=== PATIENT | female | born 1930 | race Caucasian/White ===

== ENCOUNTER 2016-11-24 11:14 | Inpatient (IN) | payer MEDICARE ==
[2016-11-24] VITALS (8 sets, daily range): BP systolic 112–134; BP diastolic 58–82; PULSE 52–93; RESP 12–18; TEMP 97.4–97.9; O2SAT 93–96
[~2016-11-24] VITALS: Ht 162.6 cm; Wt 63.6 kg
[~2016-11-24 11:14] MED LIST: CARD120C4 PO; HYDR-2952 PO; LEVO.05 PO; METO100T PO; QUIN20TA22 PO; TAB-TAB PO; [UNRECOGNIZED DRUG - OTHER] PO
[2016-11-24] MEDS ORDERED: SODIUM CHLORIDE 0.9% FLUSH 5 ML FLUSH IVF PRN (12:30)
--- NOTE | 2016-11-24 12:34 | PD ---
HPI Chief Complaint: General Weakness Time Seen by Provider: 12:27 Travel History International Travel<30 days: No Contact w/Intl Traveler<30days: No Traveled to known affect area: No History of Present Illness HPI Patient is an 86-year-old female presenting to the emergency room for evaluation of generalized weakness. Patient presents with her daughter who states that she's been weak, fatigued and tired for over a week. Patient reports chest pain for the last week that been intermittent, she also reports a decreased appetite for the last 2 weeks. Patient states the chest pain is substernal. She denies any cough, nausea, fevers, abdominal pain, vomiting, diarrhea. Patient has been seeing her capture manager Dr. Alvarado, who daughter states has started her on a new medication because of her heart rate being too high. Patient was just placed on Digitek. PFSH Past Medical History Hx Anticoagulant Therapy: Yes Arthritis: No Asthma: No Atrial Fibrillation: Yes Cancer: No High Cholesterol: Yes Chest Pain: No Congestive Heart Failure: Yes COPD: No Cerebrovascular Accident: No Diabetes: No Endocrine: Yes Gastrointestinal Disorders: Yes GERD: No Genitourinary: No Hiatal Hernia: No Hypertension: Yes Immune Disorder: No Kidney Stones: No Musculoskeletal: No Neurologic: No Reproductive: No Respiratory: No Renal Failure: No Seizures: No Sleep Apnea: No Thyroid Disease: Yes Ulcer: Yes PNEUMOCCOCAL Vaccine (Year): 1 ?: Not Menopausal: Yes Past Surgical History Abdominal Surgery: Yes (ULCER ) Body Medical Devices: GUILLERMO EYE LENS; HEART VALVE Cardiac Surgery: Yes (HEART VALVE) Ear Surgery: No Endocrine Surgery: No Eye Surgery: No Genitourinary Surgery: No Gynecologic Surgery: No Oral Surgery: No Thoracic Surgery: No Other Surgery: Yes Social History Alcohol Use: No Tobacco Use: No Substance Use: No Allergies-Medications (Allergen,Severity, Reaction): Coded Allergies: No Known Allergies (Verified , 11/24/16) Reported Meds & Prescriptions Reported Meds & Active Scripts Active Reported Lanoxin (Digoxin) 0.125 Mg Tab 0.125 Mg PO DAILY Celexa (Citalopram Hydrobromide) 20 Mg Tab 20 Mg PO DAILY Hydrochlorothiazide 12.5 Mg Tab 12.5 Mg PO DAILY Xarelto (Rivaroxaban) 15 Mg Tab 15 Mg PO DAILY Cartia Xt (Diltiazem ER 24 HR) 120 Mg Caper 120 Mg PO DAILY Fusion Plus (Multi-Vit/Iron-Vitamin C-J48-Gegyh Acid-Lacto) 130-75-0.12-1,250- 30 mg Cap 1 Cap PO DAILY Quinapril (Quinapril HCl) 20 Mg Tab 20 Mg PO DAILY Levothyroxine (Levothyroxine Sodium) 50 Mcg Tab 50 Mcg PO DAILY Metoprolol Succinate ER 24 HR (Metoprolol Succinate) 200 Mg Tab 200 Mg PO DAILY Review of Systems Except as stated in HPI: all other systems reviewed are Neg General / Constitutional: Positive: Other (fatigue) HENT: No: Headaches Cardiovascular: Positive: Chest Pain or Discomfort Respiratory: No: Cough, Shortness of Breath Gastrointestinal: Positive: Loss of Appetite, No: Nausea, Vomiting, Diarrhea, Abdominal Pain Genitourinary: No: Dysuria Neurologic: Positive: Weakness, No: Focal Abnormalities Physical Exam Narrative GENERAL: Well-developed, well-nourished, elderly female. Resting comfortably in no acute distress. SKIN: Warm and dry. HEAD: Atraumatic. Normocephalic. EYES: Pupils equal and round. No scleral icterus. No injection or drainage. ENT: No nasal bleeding or discharge. Mucous membranes pink and moist. NECK: Trachea midline. No JVD. CARDIOVASCULAR: Irregularly irregular, muffled. No murmur appreciated. RESPIRATORY: No accessory muscle use. Clear to auscultation. Breath sounds equal bilaterally. GASTROINTESTINAL: Abdomen soft, non-tender, nondistended. Hepatic and splenic margins not palpable. MUSCULOSKELETAL: No obvious deformities. No clubbing. No cyanosis. No edema. Positive pedal pulses bilaterally. NEUROLOGICAL: Awake and alert. No obvious cranial nerve deficits. Motor grossly within normal limits. Normal speech. PSYCHIATRIC: Appropriate mood and affect; insight and judgment normal. Data Data Last Documented VS Vital Signs Date Time Temp Pulse Resp B/P Pulse Ox O2 Delivery O2 Flow Rate FiO2 11/24/16 14:41 57 18 112/58 95 Room Air 11/24/16 11:21 97.4 Orders Electrocardiogram (11/24/16 12:24) Ckmb (Isoenzyme) Profile (11/24/16 12:24) Complete Blood Count With Diff (11/24/16 12:24) Comprehensive Metabolic Panel (11/24/16 12:24) Magnesium (Mg) (11/24/16 12:24) Prothrombin Time / Inr (Pt) (11/24/16 12:24) Act Partial Throm Time (Ptt) (11/24/16 12:24) Troponin I (11/24/16 12:24) Chest, Single Ap (11/24/16 12:24) Sodium Chloride 0.9% Flush (Ns Flush) (11/24/16 12:30) Urinalysis - C+S If Indicated (11/24/16 12:24) Digoxin (11/24/16 12:25) Urine Culture (11/24/16 14:35) Ceftriaxone Inj (Rocephin Inj) (11/24/16 15:30) Admit Order (Ed Use Only) (11/24/16 ) Labs Laboratory Tests Test 11/24/16 11/24/16 11/24/16 12:50 13:20 14:35 White Blood Count 7.3 TH/MM3 Red Blood Count 5.14 MIL/MM3 Hemoglobin 15.8 GM/DL Hematocrit 44.2 % Mean Corpuscular Volume 86.0 FL Mean Corpuscular Hemoglobin 30.7 PG Mean Corpuscular Hemoglobin 35.7 % Concent Red Cell Distribution Width 14.0 % Platelet Count 181 TH/MM3 Mean Platelet Volume 10.5 FL Neutrophils (%) (Auto) 74.9 % Lymphocytes (%) (Auto) 13.7 % Monocytes (%) (Auto) 7.9 % Eosinophils (%) (Auto) 3.0 % Basophils (%) (Auto) 0.5 % Neutrophils # (Auto) 5.4 TH/MM3 Lymphocytes # (Auto) 1.0 TH/MM3 Monocytes # (Auto) 0.6 TH/MM3 Eosinophils # (Auto) 0.2 TH/MM3 Basophils # (Auto) 0.0 TH/MM3 CBC Comment DIFF FINAL Differential Comment Prothrombin Time 11.5 SEC Prothromb Time International 1.0 RATIO Ratio Activated Partial 25.7 SEC Thromboplast Time Sodium Level 136 MEQ/L Potassium Level 3.8 MEQ/L Chloride Level 99 MEQ/L Carbon Dioxide Level 28.1 MEQ/L Anion Gap 9 MEQ/L Blood Urea Nitrogen 37 MG/DL Creatinine 1.93 MG/DL Estimat Glomerular Filtration 25 ML/MIN Rate Random Glucose 121 MG/DL Calcium Level 9.1 MG/DL Magnesium Level 2.4 MG/DL Total Bilirubin 0.5 MG/DL Aspartate Amino Transf 22 U/L (AST/SGOT) Alanine Aminotransferase 16 U/L (ALT/SGPT) Alkaline Phosphatase 76 U/L Total Creatine Kinase 84 U/L Troponin I 0.02 NG/ML Total Protein 7.2 GM/DL Albumin 3.1 GM/DL Digoxin Level 2.3 NG/ML Urine Color YELLOW Urine Turbidity HAZY Urine pH 6.0 Urine Specific [place] 1.011 Urine Protein TRACE mg/dL Urine Glucose (UA) NEG mg/dL Urine Ketones NEG mg/dL Urine Occult Blood SMALL Urine Nitrite NEG Urine Bilirubin NEG Urine Urobilinogen LESS THAN 2.0 MG/DL Urine Leukocyte Esterase LARGE Urine RBC 12 /hpf Urine WBC /hpf Urine WBC Clumps MANY Urine Squamous Epithelial 3 /hpf Cells Urine Transitional Epithelial 8 /hpf Cells Urine Bacteria MOD /hpf Microscopic Urinalysis Comment CULTURE INDICATED MDM Medical Decision Making Medical Screen Exam Complete: Yes Emergency Medical Condition: Yes Medical Record Reviewed: Yes Interpretation(s) Vital Signs Date Time Temp Pulse Resp B/P Pulse Ox O2 Delivery O2 Flow Rate FiO2 11/24/16 11:21 97.4 93 16 128/58 93 Differential Diagnosis Viral syndrome versus digoxin toxicity versus congestive heart failure versus urinary tract infection versus other Narrative Course Patient is an 86-year-old female presenting to the emergency department with her daughter for evaluation of generalized weakness and chest pain. EKG, chest x-ray, labs ordered and pending. Additionally we'll check digoxin level. Care patient will be transferred to provide her with a medical bed is available. Workup was initiated in triage. Jael Edmonds Nov 24, 2016 12:34 Jael Edmonds Nov 24, 2016 12:34
[2016-11-24 13:14] LABS: AUTOMATED NEUTROPHIL # 5.4 TH/MM3 (1.8-7.7); BASOPHIL % 0.5 % (0.0-2.0); EOSINOPHIL # 0.2 TH/MM3 (0-0.4); HEMATOCRIT 44.2 % (35.0-46.0); HEMO FLAGS DIFF FINAL; LYMPH % 13.7 % (9.0-44.0); MEAN CORPUSCULAR HEMOGLOBIN 30.7 PG (27.0-34.0); MEAN CORPUSCULAR HGB CONC 35.7 % (32.0-36.0); MONO % 7.9 % (0.0-8.0); NEUT % 74.9 % (16.0-70.0); PLATELET COUNT 181 TH/MM3 (150-450); RED BLOOD COUNT 5.14 MIL/MM3 (4.00-5.30); WHITE BLOOD COUNT 7.3 TH/MM3 (4.0-11.0)
[2016-11-24 13:25] LABS: APTT (PATIENT) 25.7 SEC (24.3-30.1); PROTHROMBIN TIME - PATIENT 11.5 SEC (9.8-11.6)
[2016-11-24 13:37] LABS: ANION GAP 9 MEQ/L (5-15); AST (GOT) 22 U/L (15-37); BICARBONATE 28.1 MEQ/L (21.0-32.0); BLOOD UREA NITROGEN 37 MG/DL (7-18); CHLORIDE 99 MEQ/L (98-107); GLOMERULAR FILTRATION RATE 25 ML/MIN (>89); MAGNESIUM 2.4 MG/DL (1.5-2.5); POTASSIUM 3.8 MEQ/L (3.5-5.1); SODIUM (NA) 136 MEQ/L (136-145)
[2016-11-24 13:41] LABS: ALKALINE PHOSPHATASE 76 U/L (45-117); ALT (GPT) 16 U/L (10-53); TOTAL BILIRUBIN ADULT 0.5 MG/DL (0.2-1.0)
[2016-11-24 13:42] LABS: CREATINE KINASE 84 U/L (26-192)
--- NOTE | 2016-11-24 14:12 | RADRPT ---
EXAM DATE/TIME: 11/24/2016 13:42 [facility] COMPARISON: No previous studies available for comparison. INDICATIONS : Weakness. Chest discomfort. Irregular heartbeat. MEDICAL HISTORY : Atrial fibrilation. SURGICAL HISTORY : Fusion, lumbar. Cardiac valve replacement. ENCOUNTER: Subsequent ACUITY: 2 weeks PAIN SCORE: 0/10 LOCATION: Left middle chest FINDINGS: A single view of the chest demonstrates diminished lung volumes. No infiltrate or effusion. The card iomediastinal contours are unremarkable. Previous heart valve replacement. Osseous structures are int act. CONCLUSION: No acute disease. Zenon Saldana MD on November 24, 2016 at 14:05 Board Certified Radiologist. This report was verified electronically.
[2016-11-24] MEDS ORDERED: CELE20TA PO (14:18)
[2016-11-24] MEDS ORDERED: CART120C PO (14:18)
[2016-11-24] MEDS ORDERED: LEVO50TA4 PO (14:18)
[2016-11-24] MEDS ORDERED: FE FCAP3 PO (14:18)
[2016-11-24] MEDS ORDERED: METO200T3 PO (14:18)
[2016-11-24] MEDS ORDERED: LANO0.1212 PO (14:18)
[2016-11-24] MEDS ORDERED: XARE15TA PO (14:18)
[2016-11-24] MEDS ORDERED: HYDR12.56 PO (14:18)
[2016-11-24] MEDS ORDERED: QUIN20TA4 PO (14:18)
[2016-11-24 15:19] LABS: BACTERIA, URINE MOD /hpf; BLOOD, URINE SMALL (NEG); GLUCOSE,URINE NEG (NEG); KETONE, URINE NEG (NEG); NITRITE,URINE NEG (NEG); SQUAMOUS EPITHELIAL CELL URINE 3 /hpf (0-5); TRANSITIONAL EPI CELLS, URINE 8 /hpf; URINE COLOR YELLOW (YELLW/STRAW)
[2016-11-24 15:22] LABS: COMMENT (UR) CULTURE INDICATED; CULTURE IF INDICATED CULTURE INDICATED
[2016-11-24] MEDS ORDERED: cefTRIAXone INJ 1,000 MG in SODIUM CHLORIDE 0.9% INJ 100 ML IV ONE (15:30)
--- NOTE | 2016-11-24 15:35 | PD ---
Data Data Last Documented VS Vital Signs Date Time Temp Pulse Resp B/P Pulse Ox O2 Delivery O2 Flow Rate FiO2 11/24/16 14:41 57 18 112/58 95 Room Air 11/24/16 11:21 97.4 Orders Electrocardiogram (11/24/16 12:24) Ckmb (Isoenzyme) Profile (11/24/16 12:24) Complete Blood Count With Diff (11/24/16 12:24) Comprehensive Metabolic Panel (11/24/16 12:24) Magnesium (Mg) (11/24/16 12:24) Prothrombin Time / Inr (Pt) (11/24/16 12:24) Act Partial Throm Time (Ptt) (11/24/16 12:24) Troponin I (11/24/16 12:24) Chest, Single Ap (11/24/16 12:24) Sodium Chloride 0.9% Flush (Ns Flush) (11/24/16 12:30) Urinalysis - C+S If Indicated (11/24/16 12:24) Digoxin (11/24/16 12:25) Urine Culture (11/24/16 14:35) Ceftriaxone Inj (Rocephin Inj) (11/24/16 15:30) Labs Laboratory Tests Test 11/24/16 11/24/16 11/24/16 12:50 13:20 14:35 White Blood Count 7.3 TH/MM3 Red Blood Count 5.14 MIL/MM3 Hemoglobin 15.8 GM/DL Hematocrit 44.2 % Mean Corpuscular Volume 86.0 FL Mean Corpuscular Hemoglobin 30.7 PG Mean Corpuscular Hemoglobin 35.7 % Concent Red Cell Distribution Width 14.0 % Platelet Count 181 TH/MM3 Mean Platelet Volume 10.5 FL Neutrophils (%) (Auto) 74.9 % Lymphocytes (%) (Auto) 13.7 % Monocytes (%) (Auto) 7.9 % Eosinophils (%) (Auto) 3.0 % Basophils (%) (Auto) 0.5 % Neutrophils # (Auto) 5.4 TH/MM3 Lymphocytes # (Auto) 1.0 TH/MM3 Monocytes # (Auto) 0.6 TH/MM3 Eosinophils # (Auto) 0.2 TH/MM3 Basophils # (Auto) 0.0 TH/MM3 CBC Comment DIFF FINAL Differential Comment Prothrombin Time 11.5 SEC Prothromb Time International 1.0 RATIO Ratio Activated Partial 25.7 SEC Thromboplast Time Sodium Level 136 MEQ/L Potassium Level 3.8 MEQ/L Chloride Level 99 MEQ/L Carbon Dioxide Level 28.1 MEQ/L Anion Gap 9 MEQ/L Blood Urea Nitrogen 37 MG/DL Creatinine 1.93 MG/DL Estimat Glomerular Filtration 25 ML/MIN Rate Random Glucose 121 MG/DL Calcium Level 9.1 MG/DL Magnesium Level 2.4 MG/DL Total Bilirubin 0.5 MG/DL Aspartate Amino Transf 22 U/L (AST/SGOT) Alanine Aminotransferase 16 U/L (ALT/SGPT) Alkaline Phosphatase 76 U/L Total Creatine Kinase 84 U/L Troponin I 0.02 NG/ML Total Protein 7.2 GM/DL Albumin 3.1 GM/DL Digoxin Level 2.3 NG/ML Urine Color YELLOW Urine Turbidity HAZY Urine pH 6.0 Urine Specific [place] 1.011 Urine Protein TRACE mg/dL Urine Glucose (UA) NEG mg/dL Urine Ketones NEG mg/dL Urine Occult Blood SMALL Urine Nitrite NEG Urine Bilirubin NEG Urine Urobilinogen LESS THAN 2.0 MG/DL Urine Leukocyte Esterase LARGE Urine RBC 12 /hpf Urine WBC /hpf Urine WBC Clumps MANY Urine Squamous Epithelial 3 /hpf Cells Urine Transitional Epithelial 8 /hpf Cells Urine Bacteria MOD /hpf Microscopic Urinalysis Comment CULTURE INDICATED MDM Supervised Visit with CAESAR: Yes Narrative Course Assumed care patient. 86-year-old woman with progressive weakness and fatigue over the past week. They've been adjusting her medications. Couple weeks ago they switched her onto long-acting metoprolol since she would only take it once a day. He also had a digoxin about a week or so ago. She's got progressively more fatigued and weak and so is brought in by family today. She looks well. She is in A. fib with significant bradycardia down in the high 40s low 50s. EKG shows some lateral T wave inversions I think represents digoxin effect. Could also represent ischemia. Troponin is negative however. She does have kidney injury with a GFR 25. We have no old glasses notices chronic or not. I think she likely has symptomatic bradycardia, likely from medications and possibly compounded by renal dysfunction. We'll recommend admission to the hospital. She has some pyuria we'll treat her for UTI. Keep her on monitor. Consider Digibind if there is any worsening. Diagnosis Primary Impression: Symptomatic bradycardia Additional Impressions: UTI (urinary tract infection) Qualified Code: N30.00 - Acute cystitis without hematuria Kidney disease Admitting Information Admitting Physician Requests: Admit Iam Cummings MD Nov 24, 2016 15:35
[2016-11-24] MEDS ORDERED: SODIUM CHLORIDE 0.9% FLUSH 5 ML FLUSH FLUSH PRN (15:45)
[2016-11-24] MEDS ORDERED: NALOXONE HCL 0.4 MG/ML AMP IV PRN (15:45)
[2016-11-24] MEDS ORDERED: ACETAMINOPHEN 325 MG TAB PO PRN (15:45)
[2016-11-24] MEDS ORDERED: ONDANSETRON HCL 4 MG/2 ML VIAL IVP PRN (15:45)
--- NOTE | 2016-11-24 16:26 | HP.UPD ---
H&P Update Note This is an 86-year-old female who was seen by the undersigned today in room A11 at the emergency department. She was brought in by family for generalized weakness and lethargy. She has atrial fibrillation and has had problems with controlling her rapid response. She sees wire cutter Dr. Chaparro. Recently she has been put on 200 mg of Toprol, 180 mg of Cardizem in addition to oral digoxin. He is currently digoxin toxic at a heart rate in the 40s and 50s, she continues in atrial fibrillation. Also she appears to have some form of renal dysfunction. Family is unaware that she has problems with her kidney function. She does urinate adequately. Also she has pyuria questionable urinary infection. Case was discussed with emergency physician and with the patient's daughter. She is being admitted to telemetry. Cardiology consultation requested. Digoxin discontinued. Cardizem withheld. Toprol-XL dose reduced and is to be held for heart rate below 50. He is to have her renal function followed. IV fluids also ordered. Full history and physical to follow Kuldeep Alexander MD Nov 24, 2016 16:23
[2016-11-24] MEDS: SODIUM CHLOR 0.45% 1000 ML INJ 1,000 ML IV SCH (17:04)
--- NOTE | 2016-11-24 18:45 | MB ---
cc: MIKE CHEN M.D., MARK B. M.D. KAYYAL, MAZHAR MD DATE OF CONSULTATION: 11/24/2016 REASON FOR CONSULTATION: Bradycardia. REFERRING PHYSICIAN: Dr. Alexander. HISTORY Ms. Beck is an 86 year-old white female well-known to me with permanent atrial fibrillation. Over the past 2 weeks she has been very lethargic and weak according to her daughter who had her taken to the emergency room this morning for evaluation. We have been in close contact with the patient's daughter about the patient's condition. I saw her last on October 13 at which time she had an uncontrolled ventricular response and heart rates in the 130 range. She was not very symptomatic at that point and her medications were adjusted but since then it has come to our attention that she has been living alone and taking her own medications and been noncompliant and unreliable as far as taking her medications. Over the past 2 weeks she has had a visiting customer care assistant help her with her medications and she has now been, according to the daughter, receiving them regularly in the evenings. Since that time she has become more weak and lethargic. On arrival here she was found to be in atrial fibrillation with a heart rate in the 40s and 50s, but her blood pressure was adequate and she is awake and alert, in no distress. Her daughter tells me that her p.o. fluid and food intake has been poor lately. The patient denies any chest pain, shortness of breath. She denies any palpitations, lightheadedness or syncopal episodes. She is lying in bed, very comfortable at this time with no complaints. She appears to be able to lie flat comfortably. PAST MEDICAL HISTORY: Significant for longstanding hypertension with hypertensive heart disease, mitral valve disease with mitral valve prolapse, permanent atrial fibrillation, mild aortic insufficiency, hypothyroidism on replacement, long-term anticoagulation therapy with Xarelto. She denies history of myocardial infarction, heart failure or stroke. Denies diabetes mellitus. MEDICATIONS Medications at home were as follows: 1. Digoxin 0.125 mg daily which was started on November 11 to help with a ventricular rate control. 2. Metoprolol succinate 200 mg daily. 3. Diltiazem CD 120 mg daily. 4. Quinapril 20 mg daily. 5. Xarelto 15 mg daily. 6. Hydrochlorothiazide 12.5 mg daily. 7. Levothyroxine 50 mcg daily. 8. Multivitamin. 9. Iron supplements daily. Her p.o. medications have been held today. Her last dose of digoxin was last night around 05:30 p.m. On admission she has orders for: 1. Ceftriaxone 1 gram IV daily 2. Celexa 20 mg daily. 3. Rivaroxaban 4. Hydrochlorothiazide. 5. Metoprolol succinate 100 milligrams daily have been restarted for tomorrow. ALLERGIES None known. PAST SURGICAL HISTORY 1. She has had prior cardiac catheterization. 2. She underwent a mitral valve replacement with a #[address] Seng Castillo, here, April 16, 2011. 3. She has had bilateral cataract surgery. 4. Peptic ulcer surgery. SOCIAL HISTORY The patient denies tobacco, alcohol or illicit drug use. She lives home alone. FAMILY HISTORY Noncontributory. REVIEW OF SYSTEMS Denies lower extremity edema or claudication. Denies any lightheadedness, palpitations or syncope. Denies fevers, chills, night sweats, nausea, vomiting, diarrhea. Denies bleeding or clotting disorders. Except for that mentioned in HPI a complete 12-point review of systems otherwise negative. PHYSICAL EXAMINATION Reveals an elderly white female lying in bed in no distress at this time. Vital signs: Blood pressure 112/58 mmHg, heart rate is 57 and irregular, respiratory rate 18, temperature 97.4, oxygen saturation 95% on room air. Head: Normocephalic and atraumatic. Pupils equal, round, and react to light. Sclerae anicteric. Extraocular movements intact. Neck: The neck is supple. There is no adenopathy. No jugular venous tension at 30 degrees. Carotid upstrokes normal. No bruits. Thyroid exam is normal. Lungs: Clear. Heart: PMI is not displaced. S1-S2 irregular. I hear no murmurs, gallops or rubs. Abdomen: Benign. Extremities: No cyanosis, clubbing or edema. Perfusion is adequate in the upper and lower extremities. There are no femoral bruits. Neurologic: Exam is grossly intact. EKG from the emergency room shows atrial fibrillation with a slow ventricular response in the high 40s. LABORATORY DATA CBC: white count 7.3, hemoglobin 15.8, platelet count 181,000. Coags are normal. Electrolytes are normal. Potassium 3.8, BUN 37, creatinine 1.93, glucose 121, magnesium 2.4, AST 22, CPK 84 with a troponin-I of 0.02. Digoxin level 2.3. Urinalysis is hazy shows a large amount of leukocyte esterase with many white blood cell clumps and moderate bacteria. Culture has been sent and is pending. X-RAYS: Chest x-ray from today, no acute disease. An echocardiogram performed in my office on October 28, 2016 showed left ventricular hypertrophy with normal left ventricular size and mildly reduced systolic function. Ejection fraction 45%. There is aortic sclerosis with mild +1 aortic insufficiency. There is a normally functioning mitral valve bioprosthesis and mild tricuspid regurgitation. IMPRESSION 1. Atrial fibrillation with a slow ventricular response. 2. Generalized malaise, lethargy and weakness of uncertain etiology. 3. Hypertensive heart disease, currently well controlled. 4. History of mitral valve prolapse and mitral regurgitation status post replacement with a #27 Doan bioprosthesis April 16, 2011 functioning normally on a recent echocardiogram. 5. Mild aortic insufficiency. 6. Medication compliance issues at home. 7. Acute renal insufficiency suspected, mild dehydration. 8. Advanced age. RECOMMENDATIONS Due to the patient's poor compliance with medications at home, and it has been difficult to manipulate her medications to get appropriate ventricular rate control, it is clear now over the past week as we think she has been getting her medications as prescribed, she has probably become over-medicated. Her renal insufficiency due to suspected dehydration and poor p.o. intake is certainly contributing to the situation. She is started on intravenous fluids overnight for judicious hydration. I am going to discontinue her hydrochlorothiazide at this time since it would certainly predispose her to dehydration considering her poor p.o. intake. Additionally, will restart her Cardizem CD 120 mg daily, but reduce her dose of metoprolol succinate to 100 mg daily. Digoxin has been discontinued as well due to her renal insufficiency and slightly elevated digoxin level here today. Will observe her on telemetry. Her urinary tract infection is being addressed and treated. I have had a long discussion with the patient and her daughter. The daughter would like to entertain possible assisted care facility options since the patient is getting more difficult to manage at home. I will follow her with you. Thank you for allowing us to participate in the care of this patient. Anshul MD KENNEDY Arriaza /5:02 PM /5:42 PM
--- NOTE | 2016-11-24 19:04 | RADRPT ---
EXAM DATE/TIME: 11/24/2016 17:38 [facility] COMPARISON: No previous studies available for comparison. INDICATIONS : Increased BUN/creatinine. MEDICAL HISTORY : Congestive heart failure. Hypercholesterolemia. Hypertension. Thyroid disease. Afib. Ulcer. Anticoagu lant therapy. SURGICAL HISTORY : Heart valve surgery. Microdiscectomy. Blood transfusions. ENCOUNTER: Initial ACUITY: 1 day PAIN SCORE: 0/10 LOCATION: Bilateral flank MEASUREMENTS: RIGHT KIDNEY: 8.5 x 3.3 x 4.2 cm LEFT KIDNEY: 9.1 x 4.2 x 4.8 cm FINDINGS: RIGHT KIDNEY: Small, lobulated and have increased echogenicity. No hydronephrosis. 11 mm lower pole cyst. No solid lesion. LEFT KIDNEY: Small, echogenic and lobulated. No hydronephrosis or focal lesion. BLADDER: Within normal limits given the degree of distension. Incidentally seen 14 mm gallstone. CONCLUSION: 1. Small echogenic kidneys typical of chronic parenchymal disease. 2. No obstructive uropathy or other acute abnormality demonstrated. 3. Small, benign appearing cyst of the right lower pole. 4. Gallstone incidentally noted. Piyush Dan MD on November 24, 2016 at 19:01 Board Certified Radiologist. This report was verified electronically.
--- NOTE | 2016-11-24 20:51 | HHI.HP ---
HPI Service [facility] Primary Care Physician Jyoti Ramesh MD Admission Diagnosis symptomatically bradycardia, kidney injury Diagnoses: Travel History International Travel<30 Days: No Contact w/Intl Traveler <30 Da: No Traveled to Known Affected Are: No History of Present Illness This is an 86-year-old female who was seen by the undersigned today in room A11 at the emergency department. She was brought in by family for generalized weakness and lethargy. She has atrial fibrillation and has had problems with controlling her rapid response. She sees twisting frame changer Dr. Chaparro. Recently she has been put on 200 mg of Toprol, 180 mg of Cardizem in addition to oral digoxin. He is currently digoxin toxic at a heart rate in the 40s and 50s, she continues in atrial fibrillation. The patient is complaining of general weakness however she denies any pain, not tolerating, no fever chills or diaphoresis. Also she appears to have some form of renal dysfunction. Family is unaware that she has problems with her kidney function. She does urinate adequately. Review of Systems Other 10 systems reviewed otherwise negative Past Family Social History Past Medical History Hypothyroid Atrial fibrillation Mitral valve disease Hypertensive heart disease Mitral prolapse Mild aortic insufficiency Heart failure Valvular heart disease Hyperlipidemia Hypertension Peptic ulcer disease Back pain Past Surgical History Discectomy Allergies: Coded Allergies: No Known Allergies (Verified , 11/24/16) Physical Exam Vital Signs Vital Signs Date Time Temp Pulse Resp B/P Pulse Ox O2 Delivery O2 Flow Rate FiO2 11/24/16 20:04 97.5 52 16 134/63 96 11/24/16 18:10 97.9 76 12 117/82 96 11/24/16 17:16 63 18 124/75 95 Room Air 11/24/16 14:41 57 18 112/58 95 Room Air 11/24/16 13:35 52 16 117/59 95 Room Air 11/24/16 11:21 97.4 93 16 128/58 93 Physical Exam GENERAL: This is a very pleasant, elderly, well-nourished, well-developed patient, in no apparent distress. SKIN: No rashes, ecchymoses or lesions. Cool and dry. HEAD: Atraumatic. Normocephalic. No temporal or scalp tenderness. EYES: Pupils equal round and reactive. Extraocular motions intact. No scleral icterus. No injection or drainage. ENT: Nose without bleeding, purulent drainage or septal hematoma. Throat without erythema, tonsillar hypertrophy or exudate. Uvula midline. Airway patent. NECK: Trachea midline. No JVD or lymphadenopathy. Supple, nontender, no meningeal signs. CARDIOVASCULAR: Heart is a regular RESPIRATORY: Clear to auscultation. Breath sounds equal bilaterally. No wheezes , rales, or rhonchi. GASTROINTESTINAL: Abdomen soft, non-tender, nondistended. No hepato-splenomegaly , or palpable masses. No guarding. MUSCULOSKELETAL: Extremities without clubbing, cyanosis, or edema. No joint tenderness, effusion, or edema noted. No calf tenderness. Negative Homans sign bilaterally. NEUROLOGICAL: Awake and alert. Normal speech. Laboratory Laboratory Tests Test 11/24/16 11/24/16 11/24/16 11/24/16 12:50 13:20 14:35 19:15 White Blood Count 7.3 Red Blood Count 5.14 Hemoglobin 15.8 Hematocrit 44.2 Mean Corpuscular Volume 86.0 Mean Corpuscular Hemoglobin 30.7 Mean Corpuscular Hemoglobin 35.7 Concent Red Cell Distribution Width 14.0 Platelet Count 181 Mean Platelet Volume 10.5 Neutrophils (%) (Auto) 74.9 Lymphocytes (%) (Auto) 13.7 Monocytes (%) (Auto) 7.9 Eosinophils (%) (Auto) 3.0 Basophils (%) (Auto) 0.5 Neutrophils # (Auto) 5.4 Lymphocytes # (Auto) 1.0 Monocytes # (Auto) 0.6 Eosinophils # (Auto) 0.2 Basophils # (Auto) 0.0 CBC Comment DIFF FINAL Differential Comment Prothrombin Time 11.5 Prothromb Time International 1.0 Ratio Activated Partial 25.7 Thromboplast Time Sodium Level 136 Potassium Level 3.8 Chloride Level 99 Carbon Dioxide Level 28.1 Anion Gap 9 Blood Urea Nitrogen 37 Creatinine 1.93 Estimat Glomerular Filtration 25 Rate Random Glucose 121 Calcium Level 9.1 Magnesium Level 2.4 Total Bilirubin 0.5 Aspartate Amino Transf 22 (AST/SGOT) Alanine Aminotransferase 16 (ALT/SGPT) Alkaline Phosphatase 76 Total Creatine Kinase 84 73 Troponin I 0.02 0.02 Total Protein 7.2 Albumin 3.1 Digoxin Level 2.3 Urine Color YELLOW Urine Turbidity HAZY Urine pH 6.0 Urine Specific [place] 1.011 Urine Protein TRACE Urine Glucose (UA) NEG Urine Ketones NEG Urine Occult Blood SMALL Urine Nitrite NEG Urine Bilirubin NEG Urine Urobilinogen LESS THAN 2.0 Urine Leukocyte Esterase LARGE Urine RBC 12 Urine WBC Urine WBC Clumps MANY Urine Squamous Epithelial 3 Cells Urine Transitional Epithelial 8 Cells Urine Bacteria MOD Microscopic Urinalysis Comment CULTURE INDICATED Date/Time Procedure Status Source Growth 11/24/16 14:35 Urine Culture Received Urine Clean Catch Pending Result Diagram: 11/24/16 1250 11/24/16 1250 Assessment and Plan Assessment and Plan Assessment Symptomatic bradycardia Digoxin toxicity Possible urinary infection Renal dysfunction, acute kidney injury versus chronic kidney disease Hematuria Management Stop digoxin Follow digoxin levels IV fluids Consult cardiology Empiric antibiotics telemetry. Cardiology consultation requested. Cardizem withheld. Toprol-XL dose reduced and is to be held for heart rate below 50. have her renal function followed. DVT prophylaxis She is to continue her anticoagulant that she takes at home Case was discussed with emergency physician and with the patient's daughter. Physician Certification 2 Midnight Certification Type: Admission for Inpatient Services Order for Inpatient Services The services are ordered in accordance with Medicare regulations or non- Medicare payer requirements, as applicable. In the case of services not specified as inpatient-only, they are appropriately provided as inpatient services in accordance with the 2-midnight benchmark. Estimated LOS (days): 3 days is the estimated time the patient will need to remain in the hospital, assuming treatment plan goals are met and no additional complications. Post-Hospital Plan: Not yet determined Kuldeep Alexander MD Nov 24, 2016 20:51
[2016-11-24] MEDS: DOCUSATE SODIUM 100 MG CAP PO SCH (21:00)
[2016-11-24] MEDS: SODIUM CHLORIDE 0.9% FLUSH 5 ML FLUSH FLUSH SCH (21:57)
[2016-11-25] VITALS (7 sets, daily range): BP systolic 109–132; BP diastolic 57–60; PULSE 60–77; RESP 14–18; TEMP 97.3–98.4; O2SAT 94–100
[2016-11-25 02:37] LABS: AUTOMATED NEUTROPHIL # 5.7 TH/MM3 (1.8-7.7); BASOPHIL # 0.1 TH/MM3 (0-0.2); BASOPHIL % 1.1 % (0.0-2.0); EOSINOPHIL # 0.3 TH/MM3 (0-0.4); EOSINOPHIL % 3.8 % (0.0-4.0); HEMATOCRIT 39.4 % (35.0-46.0); HEMO FLAGS DIFF FINAL; LYMPH % 16.3 % (9.0-44.0); LYMPHOCYTE # 1.4 TH/MM3 (1.0-4.8); MEAN CELL VOLUME 86.1 FL (80.0-100.0); MEAN CORPUSCULAR HEMOGLOBIN 29.9 PG (27.0-34.0); MEAN CORPUSCULAR HGB CONC 34.7 % (32.0-36.0); NEUT % 68.8 % (16.0-70.0); PLATELET COUNT 161 TH/MM3 (150-450); RED BLOOD COUNT 4.57 MIL/MM3 (4.00-5.30); RED CELL DISTRIBUTION WIDTH 14.2 % (11.6-17.2); WHITE BLOOD COUNT 8.3 TH/MM3 (4.0-11.0)
[2016-11-25 03:01] LABS: BICARBONATE 27.4 MEQ/L (21.0-32.0); POTASSIUM 3.5 MEQ/L (3.5-5.1)
[2016-11-25] MEDS: LEVOTHYROXINE SODIUM 50 MCG TAB PO SCH (05:38)
[2016-11-25] MEDS: SODIUM CHLOR 0.45% 1000 ML INJ 1,000 ML IV SCH ×2 (05:38→21:05)
[2016-11-25] MEDS: SODIUM CHLORIDE 0.9% FLUSH 5 ML FLUSH FLUSH SCH ×2 (08:25→21:05)
--- NOTE | 2016-11-25 08:25 | PD.CARD.PN ---
Subjective Subjective Remarks Call last night about 2-5 second pauses. Patient asleep and asymtomatic. Ezio CP or SOB this AM. Slept well. Objective Medications Current Medications Medications (Trade) Dose Ordered Sig/Susana Route PRN Reason Start Time Stop Time Status Last Admin Dose Admin Sodium Chloride (1/2 NS 1000 ml Inj) 1,000 ml @ 50 mls/hr Q20H IV 11/24/16 15:31 11/25/16 05:38 IV Flush (NS Flush) 2 ml UNSCH PRN FLUSH FLUSH AFTER USING IV ACCESS 11/24/16 15:45 IV Flush (NS Flush) 2 ml BID FLUSH 11/24/16 21:00 11/24/16 21:57 Acetaminophen (Tylenol) 650 mg Q4H PRN PO TEMP > 100.4 11/24/16 15:45 Ondansetron HCl (Zofran Inj) 4 mg Q6H PRN IVP NAUSEA OR VOMITING 11/24/16 15:45 Docusate Sodium (Colace) 100 mg Q12HR PO 11/24/16 21:00 Naloxone HCl (Narcan Inj) 0.4 mg UNSCH PRN IV SEE LABEL COMMENTS 11/24/16 15:45 Citalopram Hydrobromide (CeleXA) 20 mg DAILY PO 11/25/16 09:00 Levothyroxine Sodium (Synthroid) 50 mcg DAILY@0600 PO 11/25/16 06:00 11/25/16 05:38 Rivaroxaban (Xarelto) 15 mg DAILY PO 11/25/16 09:00 Multivitamins/ Minerals Therapeutic 1 tab 1 tab DAILY PO 11/25/16 09:00 Ceftriaxone Sodium/Sodium Chloride (Rocephin Inj/NS Inj) 100 ml @ 200 mls/hr Q24H IV 11/25/16 17:00 Lisinopril (Prinivil) 10 mg DAILY PO 11/25/16 09:00 Diltiazem HCl (Cardizem Cd) 120 mg DAILY PO 11/25/16 09:00 Future hold Metoprolol Succinate (Toprol Xl) 50 mg DAILY PO 11/25/16 09:00 Future Hold Vital Signs / I&O Vital Signs Date Time Temp Pulse Resp B/P Pulse Ox O2 Delivery O2 Flow Rate FiO2 11/25/16 04:00 97.9 76 14 131/60 96 11/25/16 00:00 97.3 64 14 113/57 94 11/24/16 23:28 64 11/24/16 20:04 97.5 52 16 134/63 96 11/24/16 20:00 54 11/24/16 20:00 Room Air 11/24/16 18:10 97.9 76 12 117/82 96 11/24/16 17:16 63 18 124/75 95 Room Air 11/24/16 14:41 57 18 112/58 95 Room Air 11/24/16 13:35 52 16 117/59 95 Room Air 11/24/16 11:21 97.4 93 16 128/58 93 I/O 11/24/16 11/24/16 11/24/16 11/25/16 11/25/16 11/25/16 07:00 15:00 23:00 07:00 15:00 23:00 Intake Total 896 ml Balance 896 ml Intake IV Total 896 ml # Voids 0 # Bowel Movements 0 Physical Exam VSS, afebrile. No JVD Lungs: CTA Heart Irreg, S1/S2, Soft TIESHA at base. Ext: No C/C/E Neuro: Non-focal Laboratory Laboratory Tests Test 11/24/16 11/24/16 11/24/16 11/24/16 12:50 13:20 14:35 19:15 White Blood Count 7.3 TH/MM3 Red Blood Count 5.14 MIL/MM3 Hemoglobin 15.8 GM/DL Hematocrit 44.2 % Mean Corpuscular Volume 86.0 FL Mean Corpuscular Hemoglobin 30.7 PG Mean Corpuscular Hemoglobin 35.7 % Concent Red Cell Distribution Width 14.0 % Platelet Count 181 TH/MM3 Mean Platelet Volume 10.5 FL Neutrophils (%) (Auto) 74.9 % Lymphocytes (%) (Auto) 13.7 % Monocytes (%) (Auto) 7.9 % Eosinophils (%) (Auto) 3.0 % Basophils (%) (Auto) 0.5 % Neutrophils # (Auto) 5.4 TH/MM3 Lymphocytes # (Auto) 1.0 TH/MM3 Monocytes # (Auto) 0.6 TH/MM3 Eosinophils # (Auto) 0.2 TH/MM3 Basophils # (Auto) 0.0 TH/MM3 CBC Comment DIFF FINAL Differential Comment Prothrombin Time 11.5 SEC Prothromb Time International 1.0 RATIO Ratio Activated Partial 25.7 SEC Thromboplast Time Sodium Level 136 MEQ/L Potassium Level 3.8 MEQ/L Chloride Level 99 MEQ/L Carbon Dioxide Level 28.1 MEQ/L Anion Gap 9 MEQ/L Blood Urea Nitrogen 37 MG/DL Creatinine 1.93 MG/DL Estimat Glomerular Filtration 25 ML/MIN Rate Random Glucose 121 MG/DL Calcium Level 9.1 MG/DL Magnesium Level 2.4 MG/DL Total Bilirubin 0.5 MG/DL Aspartate Amino Transf 22 U/L (AST/SGOT) Alanine Aminotransferase 16 U/L (ALT/SGPT) Alkaline Phosphatase 76 U/L Total Creatine Kinase 84 U/L 73 U/L Troponin I 0.02 NG/ML 0.02 NG/ML Total Protein 7.2 GM/DL Albumin 3.1 GM/DL Digoxin Level 2.3 NG/ML Urine Color YELLOW Urine Turbidity HAZY Urine pH 6.0 Urine Specific [place] 1.011 Urine Protein TRACE mg/dL Urine Glucose (UA) NEG mg/dL Urine Ketones NEG mg/dL Urine Occult Blood SMALL Urine Nitrite NEG Urine Bilirubin NEG Urine Urobilinogen LESS THAN 2.0 MG/DL Urine Leukocyte Esterase LARGE Urine RBC 12 /hpf Urine WBC /hpf Urine WBC Clumps MANY Urine Squamous Epithelial 3 /hpf Cells Urine Transitional Epithelial 8 /hpf Cells Urine Bacteria MOD /hpf Microscopic Urinalysis Comment CULTURE INDICATED Test 11/25/16 01:46 White Blood Count 8.3 TH/MM3 Red Blood Count 4.57 MIL/MM3 Hemoglobin 13.7 GM/DL Hematocrit 39.4 % Mean Corpuscular Volume 86.1 FL Mean Corpuscular Hemoglobin 29.9 PG Mean Corpuscular Hemoglobin 34.7 % Concent Red Cell Distribution Width 14.2 % Platelet Count 161 TH/MM3 Mean Platelet Volume 10.7 FL Neutrophils (%) (Auto) 68.8 % Lymphocytes (%) (Auto) 16.3 % Monocytes (%) (Auto) 10.0 % Eosinophils (%) (Auto) 3.8 % Basophils (%) (Auto) 1.1 % Neutrophils # (Auto) 5.7 TH/MM3 Lymphocytes # (Auto) 1.4 TH/MM3 Monocytes # (Auto) 0.8 TH/MM3 Eosinophils # (Auto) 0.3 TH/MM3 Basophils # (Auto) 0.1 TH/MM3 CBC Comment DIFF FINAL Differential Comment Sodium Level 138 MEQ/L Potassium Level 3.5 MEQ/L Chloride Level 101 MEQ/L Carbon Dioxide Level 27.4 MEQ/L Anion Gap 10 MEQ/L Blood Urea Nitrogen 35 MG/DL Creatinine 1.73 MG/DL Estimat Glomerular Filtration 28 ML/MIN Rate Random Glucose 91 MG/DL Calcium Level 8.8 MG/DL Total Creatine Kinase 53 U/L Troponin I 0.03 NG/ML Imaging Last 48 hours Impressions Chest X-Ray 11/24/16 1224 Signed Impressions: Service Date/Time: Thursday, November 24, 2016 13:42 - CONCLUSION: No acute disease. Zenon Saldana MD Renal Ultrasound 11/24/16 0000 Signed Impressions: Service Date/Time: Thursday, November 24, 2016 17:38 - CONCLUSION: 1. Small echogenic kidneys typical of chronic parenchymal disease. 2. No obstructive uropathy or other acute abnormality demonstrated. 3. Small, benign appearing cyst of the right lower pole. 4. Gallstone incidentally noted. Piyush Dan MD Assessment and Plan Problem List: (1) Symptomatic bradycardia (2) Permanent atrial fibrillation (3) Hypertension (4) UTI (urinary tract infection) (5) Weakness (6) History of medication noncompliance (7) H/O mitral valve replacement with tissue graft (8) Sick sinus syndrome Assessment and Plan HR improving. Will leave off Digoxin and HCTZ. Hold Toprol and Cardizem one more day while she gets IVF hydration. Continue IV antibiotics for UTI. Discussed Condition With Discussed with patient, daughter and staff radiation therapist. Problem Qualifiers (1) UTI (urinary tract infection): Qualified Code: N30.00 - Acute cystitis without hematuria Anshul Colon MD Nov 25, 2016 08:25
[2016-11-25] MEDS: LISINOPRIL 10 MG TAB PO SCH (08:31)
[2016-11-25] MEDS: CITALOPRAM HYDROBROMIDE 20 MG TAB PO SCH (08:31)
[2016-11-25] MEDS: DOCUSATE SODIUM 100 MG CAP PO SCH ×2 (08:31→21:00)
[2016-11-25] MEDS: MULTIVITAMINS/MINERALS THERAPEUTIC TAB PO SCH (08:33)
[2016-11-25] MEDS: RIVAROXABAN 15 MG TAB PO SCH (08:33)
[2016-11-25] MEDS ORDERED: HYDROCHLOROTHIAZIDE 12.5 MG CAP PO SCH (09:00)
[2016-11-25] MEDS ORDERED: DILTIAZEM-CD 120 MG CAP ER PO SCH (09:00)
[2016-11-25] MEDS ORDERED: METOPROLOL SUCCINATE 50 MG EXTENDED RELEASE TAB PO SCH ×2 (09:00)
[2016-11-25] MEDS ORDERED: METOPROLOL SUCCINATE 200 MG PO SCH (09:00)
--- NOTE | 2016-11-25 12:02 | HHI.PR ---
Subjective Subjective Remarks no cp no sob tele reviewed, SR, overnight antione with pauses 2-5 sec. pt. asymptomatic afebrile eating ok daughter at bsd Review of Systems Constitutional Constitutional Remarks 12 point ROS completed, negative except as noted above Vitals/Results Intake & Output 11/24/16 11/24/16 11/25/16 15:00 23:00 07:00 Intake Total 896 ml Balance 896 ml Intake IV Total 896 ml # Voids 0 # Bowel Movements 0 Vital Signs Vital Signs Date Time Temp Pulse Resp B/P Pulse Ox O2 Delivery O2 Flow Rate FiO2 11/25/16 09:18 69 11/25/16 08:30 Room Air 11/25/16 08:00 98.1 63 18 132/60 94 11/25/16 04:00 97.9 76 14 131/60 96 11/25/16 00:00 97.3 64 14 113/57 94 11/24/16 23:28 64 11/24/16 20:04 97.5 52 16 134/63 96 11/24/16 20:00 54 11/24/16 20:00 Room Air 11/24/16 18:10 97.9 76 12 117/82 96 11/24/16 17:16 63 18 124/75 95 Room Air 11/24/16 14:41 57 18 112/58 95 Room Air 11/24/16 13:35 52 16 117/59 95 Room Air CBC/BMP: 11/25/16 0146 11/25/16 0146 Lab Results Laboratory Tests Test 11/24/16 11/24/16 11/24/16 11/24/16 12:50 13:20 14:35 19:15 White Blood Count 7.3 TH/MM3 Red Blood Count 5.14 MIL/MM3 Hemoglobin 15.8 GM/DL Hematocrit 44.2 % Mean Corpuscular Volume 86.0 FL Mean Corpuscular Hemoglobin 30.7 PG Mean Corpuscular Hemoglobin 35.7 % Concent Red Cell Distribution Width 14.0 % Platelet Count 181 TH/MM3 Mean Platelet Volume 10.5 FL Neutrophils (%) (Auto) 74.9 % Lymphocytes (%) (Auto) 13.7 % Monocytes (%) (Auto) 7.9 % Eosinophils (%) (Auto) 3.0 % Basophils (%) (Auto) 0.5 % Neutrophils # (Auto) 5.4 TH/MM3 Lymphocytes # (Auto) 1.0 TH/MM3 Monocytes # (Auto) 0.6 TH/MM3 Eosinophils # (Auto) 0.2 TH/MM3 Basophils # (Auto) 0.0 TH/MM3 CBC Comment DIFF FINAL Differential Comment Prothrombin Time 11.5 SEC Prothromb Time International 1.0 RATIO Ratio Activated Partial 25.7 SEC Thromboplast Time Sodium Level 136 MEQ/L Potassium Level 3.8 MEQ/L Chloride Level 99 MEQ/L Carbon Dioxide Level 28.1 MEQ/L Anion Gap 9 MEQ/L Blood Urea Nitrogen 37 MG/DL Creatinine 1.93 MG/DL Estimat Glomerular Filtration 25 ML/MIN Rate Random Glucose 121 MG/DL Calcium Level 9.1 MG/DL Magnesium Level 2.4 MG/DL Total Bilirubin 0.5 MG/DL Aspartate Amino Transf 22 U/L (AST/SGOT) Alanine Aminotransferase 16 U/L (ALT/SGPT) Alkaline Phosphatase 76 U/L Total Creatine Kinase 84 U/L 73 U/L Troponin I 0.02 NG/ML 0.02 NG/ML Total Protein 7.2 GM/DL Albumin 3.1 GM/DL Digoxin Level 2.3 NG/ML Urine Color YELLOW Urine Turbidity HAZY Urine pH 6.0 Urine Specific [place] 1.011 Urine Protein TRACE mg/dL Urine Glucose (UA) NEG mg/dL Urine Ketones NEG mg/dL Urine Occult Blood SMALL Urine Nitrite NEG Urine Bilirubin NEG Urine Urobilinogen LESS THAN 2.0 MG/DL Urine Leukocyte Esterase LARGE Urine RBC 12 /hpf Urine WBC /hpf Urine WBC Clumps MANY Urine Squamous Epithelial 3 /hpf Cells Urine Transitional Epithelial 8 /hpf Cells Urine Bacteria MOD /hpf Microscopic Urinalysis Comment CULTURE INDICATED Test 11/25/16 01:46 White Blood Count 8.3 TH/MM3 Red Blood Count 4.57 MIL/MM3 Hemoglobin 13.7 GM/DL Hematocrit 39.4 % Mean Corpuscular Volume 86.1 FL Mean Corpuscular Hemoglobin 29.9 PG Mean Corpuscular Hemoglobin 34.7 % Concent Red Cell Distribution Width 14.2 % Platelet Count 161 TH/MM3 Mean Platelet Volume 10.7 FL Neutrophils (%) (Auto) 68.8 % Lymphocytes (%) (Auto) 16.3 % Monocytes (%) (Auto) 10.0 % Eosinophils (%) (Auto) 3.8 % Basophils (%) (Auto) 1.1 % Neutrophils # (Auto) 5.7 TH/MM3 Lymphocytes # (Auto) 1.4 TH/MM3 Monocytes # (Auto) 0.8 TH/MM3 Eosinophils # (Auto) 0.3 TH/MM3 Basophils # (Auto) 0.1 TH/MM3 CBC Comment DIFF FINAL Differential Comment Sodium Level 138 MEQ/L Potassium Level 3.5 MEQ/L Chloride Level 101 MEQ/L Carbon Dioxide Level 27.4 MEQ/L Anion Gap 10 MEQ/L Blood Urea Nitrogen 35 MG/DL Creatinine 1.73 MG/DL Estimat Glomerular Filtration 28 ML/MIN Rate Random Glucose 91 MG/DL Calcium Level 8.8 MG/DL Total Creatine Kinase 53 U/L Troponin I 0.03 NG/ML Microbiology Microbiology 11/24/16 Urine Culture, Received Pending Physical Exam General General Appearance: Well Developed, Well Nourished, No Acute Distress, Comfortable Eyes Eye Exam: Pupils Equal, Pupils Reactive Ears & Nose Ears & Nose Exam: Nasal Mucosa Orange Throat Throat Exam: Oral Mucosa Orange & Moist Neck Neck Exam: Neck Supple, Trachea Midline Pulmonary Resp Exam: Clear Bilaterally Cardiology CV Exam: Good Perfusion, Irregular, Arrhythmia, Bradycardia Gastrointestinal/Abdomen GI Exam: Soft, Non-Tender, Bowel Sounds Present, Non-Distended Musculoskeletal MS Exam: Joints Intact Integumentary Skin Exam: Warm, Dry Extremeties Extremities Exam: No Edema, Pedal Pulses Palpable Neurologic Neuro Exam: Alert, Awake, Oriented, Speech Clear, Moving All Extremities, No Focal Deficits Psychiatric Psych Exam: Appropriate Responses VTE Prophylaxis VTE Remarks Xarelto Assessment/Plan Problem List: (1) Sick sinus syndrome (2) UTI (urinary tract infection) (3) Hypertension (4) Symptomatic bradycardia (5) H/O mitral valve replacement with tissue graft (6) Weakness (7) Permanent atrial fibrillation (8) History of medication noncompliance (9) Kidney disease Assessment/Plan appreciate card input Toprol and CCB on hold, noted with 2-5 sec. pauses cont. cardiac tele continue to hold dig, HCTZ renal function improved continue with cautious hydration dig level tomorrow continue empiric abx follow urine cultures continue some meds DVT prophylaxis with Xarelto PT eval and tx CM for DC planning, [facility] D/W pt. and daughter D/W Dr. Alexander D/W RN This patient was seen by myself and Dr. Alexander, this note is written on his behalf. Problem Qualifiers (1) UTI (urinary tract infection): Qualified Code: N30.00 - Acute cystitis without hematuria (2) Hypertension: Qualified Code: I10 - Essential hypertension Catarina Morgan Nov 25, 2016 12:02
--- NOTE | 2016-11-25 12:02 | HHI.FF ---
Face to Face Verification Diagnosis: (1) Sick sinus syndrome (2) Weakness (3) UTI (urinary tract infection) (4) Hypertension (5) Permanent atrial fibrillation (6) Symptomatic bradycardia (7) History of medication noncompliance (8) H/O mitral valve replacement with tissue graft (9) Kidney disease Physical Therapy Order: Evaluate and Treat Home Health Nursing Order: Medical education Nursing assessment with vital signs Nursing Home Admissions Director Order: To Evaluate: Support services I have seen patient Elzbieta Beck on 11/25/16. My clinical findings support the need for the requested home health care services because: Deconditioned w/ increased weakness Need for psychosocial assistance I certify that my clinical findings support that this patient is homebound because: Unsafe to leave home unassisted Need for psychosocial assistance Catarina Morgan Nov 25, 2016 12:02
[2016-11-25] MEDS: cefTRIAXone INJ 1,000 MG in SODIUM CHLORIDE 0.9% INJ 100 ML IV SCH (16:12)
--- NOTE | 2016-11-25 18:48 | EKG ---
Date Performed: 11/24/2016 Time Performed: 12:55:43 PTAGE: 86 years EKG: ATRIAL FIBRILLATION WITH SLOW VENTRICULAR RESPONSE LEFT ANTERIOR FASCICULAR BLOCK ST DEVIAT ION AND MODERATE T-WAVE ABNORMALITY, CONSIDER ANTEROLATERAL ISCHEMIA ST DEVIATION AND MODERATE T-WAVE ABNORMALITY, CONSIDER INFERIOR ISCHEMIA ABNORMAL ECG PREVIOUS TRACING : 12/17/2011 11.12 DOCTOR: Bolivar Noble Interpretating Date/Time 11/25/2016 18:42:43
[2016-11-26] VITALS (7 sets, daily range): BP systolic 97–155; BP diastolic 50–63; PULSE 64–74; RESP 16–18; TEMP 97.7–98.7; O2SAT 95–97
[2016-11-26] MEDS: LEVOTHYROXINE SODIUM 50 MCG TAB PO SCH (04:48)
[2016-11-26 07:47] LABS: BICARBONATE 26.9 MEQ/L (21.0-32.0); DIGOXIN 1.2 NG/ML (0.8-2.0); POTASSIUM 3.2 MEQ/L (3.5-5.1)
[2016-11-26] MEDS: SODIUM CHLORIDE 0.9% FLUSH 5 ML FLUSH FLUSH SCH ×2 (09:03→21:27)
[2016-11-26] MEDS: DOCUSATE SODIUM 100 MG CAP PO SCH ×2 (09:04→21:00)
[2016-11-26] MEDS: LISINOPRIL 10 MG TAB PO SCH (09:04)
[2016-11-26] MEDS: MULTIVITAMINS/MINERALS THERAPEUTIC TAB PO SCH (09:05)
[2016-11-26] MEDS: RIVAROXABAN 15 MG TAB PO SCH (09:05)
[2016-11-26] MEDS: CITALOPRAM HYDROBROMIDE 20 MG TAB PO SCH (09:05)
[2016-11-26] MEDS ORDERED: POTASSIUM CHLORIDE 20 MEQ CONTROLLED RELEASE TAB PO ONE (10:00)
--- NOTE | 2016-11-26 10:08 | PD.CARD.PN ---
Subjective Subjective Remarks BP higher but VR still well controlled. Feeling better. Wants to go home. Denies CP or SOB. Objective Medications Current Medications Medications (Trade) Dose Ordered Sig/Susana Route PRN Reason Start Time Stop Time Status Last Admin Dose Admin IV Flush (NS Flush) 2 ml UNSCH PRN FLUSH FLUSH AFTER USING IV ACCESS 11/24/16 15:45 IV Flush (NS Flush) 2 ml BID FLUSH 11/24/16 21:00 11/26/16 09:03 Acetaminophen (Tylenol) 650 mg Q4H PRN PO TEMP > 100.4 11/24/16 15:45 Ondansetron HCl (Zofran Inj) 4 mg Q6H PRN IVP NAUSEA OR VOMITING 11/24/16 15:45 Docusate Sodium (Colace) 100 mg Q12HR PO 11/24/16 21:00 11/26/16 09:04 Naloxone HCl (Narcan Inj) 0.4 mg UNSCH PRN IV SEE LABEL COMMENTS 11/24/16 15:45 Citalopram Hydrobromide (CeleXA) 20 mg DAILY PO 11/25/16 09:00 11/26/16 09:05 Levothyroxine Sodium (Synthroid) 50 mcg DAILY@0600 PO 11/25/16 06:00 11/26/16 04:48 Rivaroxaban (Xarelto) 15 mg DAILY PO 11/25/16 09:00 11/26/16 09:05 Multivitamins/ Minerals Therapeutic 1 tab 1 tab DAILY PO 11/25/16 09:00 11/26/16 09:05 Ceftriaxone Sodium/Sodium Chloride (Rocephin Inj/NS Inj) 100 ml @ 200 mls/hr Q24H IV 11/25/16 17:00 11/25/16 16:12 Lisinopril (Prinivil) 10 mg DAILY PO 11/25/16 09:00 11/26/16 09:04 Diltiazem HCl (Cardizem Cd) 120 mg DAILY PO 11/25/16 09:00 Potassium Chloride (KCl) 40 meq ONCE ONCE PO 11/26/16 10:00 11/26/16 10:01 UNV Vital Signs / I&O Vital Signs Date Time Temp Pulse Resp B/P Pulse Ox O2 Delivery O2 Flow Rate FiO2 11/26/16 08:05 65 11/26/16 08:00 97.8 73 16 155/61 97 11/26/16 04:00 97.8 64 16 128/62 97 11/26/16 00:00 97.7 73 18 136/63 95 11/25/16 20:00 98.1 77 16 113/57 96 11/25/16 20:00 75 11/25/16 19:45 Room Air 11/25/16 16:00 98.4 63 18 109/59 100 11/25/16 12:00 98.2 60 18 114/58 94 I/O 11/25/16 11/25/16 11/25/16 11/26/16 11/26/16 11/26/16 07:00 15:00 23:00 07:00 15:00 23:00 Intake Total 896 ml 1780 ml 570 ml 240 ml Balance 896 ml 1780 ml 570 ml 240 ml Intake Oral 1300 ml 120 ml 240 ml IV Total 896 ml 480 ml 450 ml # Voids 2 2 2 # Bowel Movements 0 0 0 Physical Exam VSS, afebrile. No JVD Lungs: CTA Heart Irreg, S1/S2, Soft TIESHA at base. Ext: No C/C/E Neuro: Non-focal Laboratory Laboratory Tests Test 11/26/16 06:20 Sodium Level 138 MEQ/L Potassium Level 3.2 MEQ/L Chloride Level 103 MEQ/L Carbon Dioxide Level 26.9 MEQ/L Anion Gap 8 MEQ/L Blood Urea Nitrogen 27 MG/DL Creatinine 1.67 MG/DL Estimat Glomerular Filtration 29 ML/MIN Rate Random Glucose 113 MG/DL Calcium Level 8.5 MG/DL Digoxin Level 1.2 NG/ML Imaging Last 48 hours Impressions Chest X-Ray 11/24/16 1224 Signed Impressions: Service Date/Time: Thursday, November 24, 2016 13:42 - CONCLUSION: No acute disease. Zenon Saldana MD Assessment and Plan Problem List: (1) Symptomatic bradycardia (2) Permanent atrial fibrillation (3) Hypertension (4) UTI (urinary tract infection) (5) Weakness (6) History of medication noncompliance (7) H/O mitral valve replacement with tissue graft (8) Sick sinus syndrome Assessment and Plan Will leave off Digoxin and HCTZ. Hold Toprol and Cardizem. Increase activity as tolerates and watch HR. Increase Lisinopril 10 mg BID for BP control. Continue Rx UTI. Following Problem Qualifiers (1) Hypertension: Qualified Code: I10 - Essential hypertension (2) UTI (urinary tract infection): Qualified Code: N30.00 - Acute cystitis without hematuria Anshul Colon MD Nov 26, 2016 10:07
--- NOTE | 2016-11-26 14:43 | HHI.PR ---
Vitals/Results Intake & Output 11/25/16 11/25/16 11/26/16 15:00 23:00 07:00 Intake Total 1780 ml 570 ml 240 ml Balance 1780 ml 570 ml 240 ml Intake Oral 1300 ml 120 ml 240 ml IV Total 480 ml 450 ml # Voids 2 2 2 # Bowel Movements 0 0 0 Vital Signs Vital Signs Date Time Temp Pulse Resp B/P Pulse Ox O2 Delivery O2 Flow Rate FiO2 11/26/16 08:55 Room Air 11/26/16 08:05 65 11/26/16 08:00 97.8 73 16 155/61 97 11/26/16 04:00 97.8 64 16 128/62 97 11/26/16 00:00 97.7 73 18 136/63 95 11/25/16 20:00 98.1 77 16 113/57 96 11/25/16 20:00 75 11/25/16 19:45 Room Air 11/25/16 16:00 98.4 63 18 109/59 100 CBC/BMP: 11/25/16 0146 11/26/16 0620 Lab Results Laboratory Tests Test 11/26/16 06:20 Sodium Level 138 MEQ/L Potassium Level 3.2 MEQ/L Chloride Level 103 MEQ/L Carbon Dioxide Level 26.9 MEQ/L Anion Gap 8 MEQ/L Blood Urea Nitrogen 27 MG/DL Creatinine 1.67 MG/DL Estimat Glomerular Filtration 29 ML/MIN Rate Random Glucose 113 MG/DL Calcium Level 8.5 MG/DL Digoxin Level 1.2 NG/ML Physical Exam General General Appearance: Well Developed, Well Nourished, No Acute Distress, Comfortable Eyes Eye Exam: Pupils Equal, Pupils Reactive Ears & Nose Ears & Nose Exam: Nasal Mucosa [place] Throat Throat Exam: Oral Mucosa [place] & Moist Neck Neck Exam: Neck Supple, Trachea Midline Pulmonary Resp Exam: Clear Bilaterally Cardiology CV Exam: Good Perfusion, Irregular, Arrhythmia, Bradycardia Gastrointestinal/Abdomen GI Exam: Soft, Non-Tender, Bowel Sounds Present, Non-Distended Musculoskeletal MS Exam: Joints Intact Integumentary Skin Exam: Warm, Dry Extremeties Extremities Exam: No Edema, Pedal Pulses Palpable Neurologic Neuro Exam: Alert, Awake, Oriented, Speech Clear, Moving All Extremities, No Focal Deficits Psychiatric Psych Exam: Appropriate Responses Assessment/Plan Problem List: (1) Sick sinus syndrome (2) UTI (urinary tract infection) (3) Hypertension (4) Symptomatic bradycardia (5) H/O mitral valve replacement with tissue graft (6) Weakness (7) Permanent atrial fibrillation (8) History of medication noncompliance (9) Kidney disease Assessment/Plan cardiology consult Toprol, dig , HCTZ and CCB on hold, rn cardiac rehab showed 2.6 second pause around noon today. Patient denies any symptoms cystitis, asymptomatic now Antibiotic therapy, Rocephin IV Hypertension stable medical management continue some meds DVT prophylaxis with Xarelto PT working with patients mobility, strength, and ADLs Concern is for patient safety since she now lives alone We'll continue to monitor heart rhythm, ambulate patient to evaluate for any symptoms of dizziness or syncope. Still showing 1-2 episodes in a 24-hour period of pauses. Atrial fib, underlying rhythm CM for DC planning, HHC, versus SNF from rehabilitation D/W Dr. Alexander, patient seen on his behalf D/W patient Problem Qualifiers (1) UTI (urinary tract infection): Qualified Code: N30.00 - Acute cystitis without hematuria (2) Hypertension: Qualified Code: I10 - Essential hypertension Vickie Dubois Nov 26, 2016 14:43
[2016-11-26] MEDS: cefTRIAXone INJ 1,000 MG in SODIUM CHLORIDE 0.9% INJ 100 ML IV SCH (15:59)
[2016-11-26] MEDS ORDERED: LISINOPRIL 10 MG TAB PO SCH (21:00)
[2016-11-27] VITALS (7 sets, daily range): BP systolic 110–144; BP diastolic 53–65; PULSE 68–85; RESP 16–20; TEMP 97.6–98.8; O2SAT 94–97
[2016-11-27] MEDS: LEVOTHYROXINE SODIUM 50 MCG TAB PO SCH (06:49)
[2016-11-27 08:11] LABS: BICARBONATE 26.3 MEQ/L (21.0-32.0); POTASSIUM 3.8 MEQ/L (3.5-5.1)
--- NOTE | 2016-11-27 08:58 | PD.CARD.PN ---
Subjective Subjective Remarks Awake and alert. No complaints. No SOB or CP. Heart rate still well controlled. Objective Medications Current Medications Medications (Trade) Dose Ordered Sig/Susana Route PRN Reason Start Time Stop Time Status Last Admin Dose Admin IV Flush (NS Flush) 2 ml UNSCH PRN FLUSH FLUSH AFTER USING IV ACCESS 11/24/16 15:45 IV Flush (NS Flush) 2 ml BID FLUSH 11/24/16 21:00 11/26/16 21:27 Acetaminophen (Tylenol) 650 mg Q4H PRN PO TEMP > 100.4 11/24/16 15:45 Ondansetron HCl (Zofran Inj) 4 mg Q6H PRN IVP NAUSEA OR VOMITING 11/24/16 15:45 Docusate Sodium (Colace) 100 mg Q12HR PO 11/24/16 21:00 11/26/16 09:04 Naloxone HCl (Narcan Inj) 0.4 mg UNSCH PRN IV SEE LABEL COMMENTS 11/24/16 15:45 Citalopram Hydrobromide (CeleXA) 20 mg DAILY PO 11/25/16 09:00 11/26/16 09:05 Levothyroxine Sodium (Synthroid) 50 mcg DAILY@0600 PO 11/25/16 06:00 11/27/16 06:49 Rivaroxaban (Xarelto) 15 mg DAILY PO 11/25/16 09:00 11/26/16 09:05 Multivitamins/ Minerals Therapeutic 1 tab 1 tab DAILY PO 11/25/16 09:00 11/26/16 09:05 Ceftriaxone Sodium/Sodium Chloride (Rocephin Inj/NS Inj) 100 ml @ 200 mls/hr Q24H IV 11/25/16 17:00 11/26/16 15:59 Lisinopril (Prinivil) 10 mg DAILY PO 11/27/16 09:00 Vital Signs / I&O Vital Signs Date Time Temp Pulse Resp B/P Pulse Ox O2 Delivery O2 Flow Rate FiO2 11/27/16 08:12 97.6 75 20 144/65 95 11/27/16 04:00 98.8 74 20 137/63 97 11/27/16 00:00 98.1 77 16 111/62 97 11/26/16 20:03 74 11/26/16 20:00 Room Air 11/26/16 20:00 98.2 70 16 123/61 96 11/26/16 16:00 98.7 71 16 97/50 95 11/26/16 08:55 Room Air I/O 11/26/16 11/26/16 11/26/16 11/27/16 11/27/16 11/27/16 07:00 15:00 23:00 07:00 15:00 23:00 Intake Total 240 ml 1134 ml 120 ml 360 ml Balance 240 ml 1134 ml 120 ml 360 ml Intake Oral 240 ml 360 ml 120 ml 360 ml IV Total 774 ml # Voids 2 2 2 2 # Bowel Movements 0 0 0 Physical Exam VSS, afebrile. No JVD Lungs: CTA Heart Irreg, S1/S2, Soft TIESHA at base. Ext: No C/C/E Neuro: Non-focal Laboratory Laboratory Tests Test 11/26/16 11/27/16 14:38 06:16 Potassium Level 3.9 MEQ/L 3.8 MEQ/L Sodium Level 141 MEQ/L Chloride Level 106 MEQ/L Carbon Dioxide Level 26.3 MEQ/L Anion Gap 9 MEQ/L Blood Urea Nitrogen 22 MG/DL Creatinine 1.38 MG/DL Estimat Glomerular Filtration 36 ML/MIN Rate Random Glucose 98 MG/DL Calcium Level 8.4 MG/DL Assessment and Plan Problem List: (1) Symptomatic bradycardia Assessment and Plan: Resolved. (2) Permanent atrial fibrillation Assessment and Plan: Rate controlled. (3) Hypertension (4) UTI (urinary tract infection) (5) Weakness (6) History of medication noncompliance (7) H/O mitral valve replacement with tissue graft (8) Sick sinus syndrome Assessment and Plan Will leave off Digoxin, HCTZ, Toprol XL and Cardizem unless HR or BP requires them. Increase activity as tolerates and watch HR. Continue Rx UTI. OK for discharge from my standpoint. Will arrange follow up as outpatient 2-3 weeks. Discussed Condition With Patient Problem Qualifiers (1) Hypertension: Qualified Code: I10 - Essential hypertension (2) UTI (urinary tract infection): Qualified Code: N30.00 - Acute cystitis without hematuria Anshul Colon MD Nov 27, 2016 08:58
[2016-11-27] MEDS: RIVAROXABAN 15 MG TAB PO SCH (09:32)
[2016-11-27] MEDS: DOCUSATE SODIUM 100 MG CAP PO SCH ×2 (09:32→21:00)
[2016-11-27] MEDS: CITALOPRAM HYDROBROMIDE 20 MG TAB PO SCH (09:32)
[2016-11-27] MEDS: LISINOPRIL 10 MG TAB PO SCH (09:32)
[2016-11-27] MEDS: MULTIVITAMINS/MINERALS THERAPEUTIC TAB PO SCH (09:32)
[2016-11-27] MEDS: SODIUM CHLORIDE 0.9% FLUSH 5 ML FLUSH FLUSH SCH ×2 (09:33→21:26)
--- NOTE | 2016-11-27 11:29 | HHI.PR ---
Subjective Subjective Remarks Resting in bed Alert oriented Appetite good Denies any chest pain Denies any shortness of breath Denies any dizziness (Vickie Dubois) Review of Systems Constitutional Constitutional: Weakness (generalized but improved) Constitutional Remarks 10 point ROS done. Exam unremarkable except for generalized weakness, related to age (Vickie Dubois) Pulmonary Respiratory: Coughing (occasional) (Vickie Dubois) Cardiology CV Remarks Telemetry shows no pauses, at. fib cvr (Vickie Dubois) GI/Abdomen GI/Abdomen Remarks Bowel movement today (Vickie Dubois) Musculoskeletal MS: Weakness (secondary to age) (Vickie Dubois) Neurologic Neurologic Remarks Denies any dizziness (Vickie Dubois) Psychiatric Psychiatric: Normal Mood (Vickie Dubois) Vitals/Results Intake & Output 11/26/16 11/26/16 11/27/16 15:00 23:00 07:00 Intake Total 1134 ml 120 ml 360 ml Balance 1134 ml 120 ml 360 ml Intake Oral 360 ml 120 ml 360 ml IV Total 774 ml # Voids 2 2 2 # Bowel Movements 0 0 Vital Signs Vital Signs Date Time Temp Pulse Resp B/P Pulse Ox O2 Delivery O2 Flow Rate FiO2 11/27/16 08:12 97.6 75 20 144/65 95 11/27/16 07:15 Room Air 11/27/16 04:00 98.8 74 20 137/63 97 11/27/16 00:00 98.1 77 16 111/62 97 11/26/16 20:03 74 11/26/16 20:00 Room Air 11/26/16 20:00 98.2 70 16 123/61 96 11/26/16 16:00 98.7 71 16 97/50 95 (Vickie Dubois) CBC/BMP: 11/25/16 0146 11/27/16 0616 Lab Results Laboratory Tests Test 11/26/16 11/27/16 14:38 06:16 Potassium Level 3.9 MEQ/L 3.8 MEQ/L Sodium Level 141 MEQ/L Chloride Level 106 MEQ/L Carbon Dioxide Level 26.3 MEQ/L Anion Gap 9 MEQ/L Blood Urea Nitrogen 22 MG/DL Creatinine 1.38 MG/DL Estimat Glomerular Filtration 36 ML/MIN Rate Random Glucose 98 MG/DL Calcium Level 8.4 MG/DL Digoxin Level 1.1 NG/ML Current Medications Active Medications Lisinopril (Prinivil) 10 mg BID PO; Start 11/26/16 at 21:00; Stop 11/26/16 at 21: 00; Status DC Lisinopril (Prinivil) 10 mg DAILY PO Last administered on 11/27/16t 09:32; Admin Dose 10 MG; Start 11/27/16 at 09:00 (Vickie DuboisP) Physical Exam General General Appearance: Well Developed, Well Nourished, No Acute Distress, Comfortable (Vickie DuboisP) Eyes Eye Exam: Pupils Equal, Pupils Reactive (Vickie Dubois PEDIGREE RESEARCHER) Ears & Nose Ears & Nose Exam: Nasal Mucosa [place] (Vickie Dubois PEDIGREE RESEARCHER) Throat Throat Exam: Oral Mucosa [place] & Moist (Vickie Dubois PEDIGREE RESEARCHER) Neck Neck Exam: Neck Supple, Trachea Midline (Vickie DuboisP) Pulmonary Resp Exam: Clear Bilaterally (Vickie DuboisP) Cardiology CV Exam: Good Perfusion, Irregular, Arrhythmia, Bradycardia (Vickie Dubois PEDIGREE RESEARCHER) Gastrointestinal/Abdomen GI Exam: Soft, Non-Tender, Bowel Sounds Present, Non-Distended (Vickie DuboisP) Musculoskeletal MS Exam: Joints Intact (Vickie DuboisP) Integumentary Skin Exam: Warm, Dry (Vickie DuboisP) Extremeties Extremities Exam: No Edema, Pedal Pulses Palpable (Vickie DuboisP) Neurologic Neuro Exam: Alert, Awake, Oriented, Speech Clear, Moving All Extremities, No Focal Deficits (Vickie Dubois PEDIGREE RESEARCHER) Psychiatric Psych Exam: Appropriate Responses (Vickie DuboisP) Assessment/Plan Problem List: (1) Sick sinus syndrome (2) UTI (urinary tract infection) (3) Hypertension (4) Symptomatic bradycardia (5) H/O mitral valve replacement with tissue graft (6) Weakness (7) Permanent atrial fibrillation (8) History of medication noncompliance (9) Kidney disease Assessment/Plan cardiology consult Toprol, dig , HCTZ and CCB on hold, pit furnace operator evaluated , no pauses noted over the past 24 hours. She asymptomatic, heart rate 70s 80s afib, cystitis, asymptomatic now Antibiotic therapy, Rocephin IV Acute kidney injury, renal insufficiency improving. Hypertension stable medical management continue some meds DVT prophylaxis with Xarelto PT working with patients mobility, strength, and ADLs Concern is for patient safety since she now lives alone We'll continue to monitor heart rhythm, ambulate patient to evaluate for any symptoms of dizziness or syncope. Patient has had no pauses, or bradycardia in the past 24 hours after review of telemetry. Atrial fib, underlying rhythm CM for DC planning, [facility], versus SNF from rehabilitation D/W Dr. Alexander, patient seen on his behalf D/W patient (Vickie Dubois) Assessment/Plan seen and examined by myself,Dr Alexander , On 11/27/16 condition was stable at this time, if she remains stable possible discharge tomorrow discussed with nurse Discussed with patient Discussed with mid-level practitioner The exam, history, and the medical decision-making described in the above note were completed with the assistance of the mid-level provider. I reviewed the findings presented. I attest that I had a [id number] encounter with the patient on the same day, and personally performed and documented my assessment and findings in the medical record (Kuldeep Alexander MD) Problem Qualifiers (1) UTI (urinary tract infection): Qualified Code: N30.00 - Acute cystitis without hematuria (2) Hypertension: Qualified Code: I10 - Essential hypertension Vickie Dubois Nov 27, 2016 11:29 Kuldeep Alexander MD Nov 28, 2016 12:23
[2016-11-27] MEDS: cefTRIAXone INJ 1,000 MG in SODIUM CHLORIDE 0.9% INJ 100 ML IV SCH (17:21)
[2016-11-28] VITALS (7 sets, daily range): BP systolic 113–157; BP diastolic 59–80; PULSE 62–84; RESP 16–18; TEMP 97.9–98.7; O2SAT 80–97
[2016-11-28] MEDS: LEVOTHYROXINE SODIUM 50 MCG TAB PO SCH (05:25)
[2016-11-28] MEDS: MULTIVITAMINS/MINERALS THERAPEUTIC TAB PO SCH (08:47)
[2016-11-28] MEDS: DOCUSATE SODIUM 100 MG CAP PO SCH ×2 (08:47→19:39)
[2016-11-28] MEDS: RIVAROXABAN 15 MG TAB PO SCH (08:47)
[2016-11-28] MEDS: LISINOPRIL 10 MG TAB PO SCH (08:47)
[2016-11-28] MEDS: CITALOPRAM HYDROBROMIDE 20 MG TAB PO SCH (08:47)
[2016-11-28] MEDS: SODIUM CHLORIDE 0.9% FLUSH 5 ML FLUSH FLUSH SCH ×2 (08:47→19:39)
--- NOTE | 2016-11-28 13:13 | HHI.PR ---
Subjective Subjective Remarks up in chair Alert oriented Appetite good Denies any shortness of breath Denies any dizziness family here (Vickie Dubois) Review of Systems Constitutional Constitutional: Weakness (generalized but improved) Constitutional Remarks 10 point ROS done. Exam unremarkable except for generalized weakness, related to age (Vickie Dubois) Pulmonary Respiratory: Coughing (occasional) (Vickie Dubois) Cardiology CV Remarks Telemetry shows no pauses, at. fib cvr (Vickie Dubois) GI/Abdomen GI/Abdomen Remarks Bowel movement today (Vickie Dubois) Musculoskeletal MS: Weakness (secondary to age) (Vickie Dubois) Neurologic Neurologic Remarks Denies any dizziness (Vickie Dubois) Psychiatric Psychiatric: Normal Mood (Vickie Dubois) Vitals/Results Intake & Output 11/27/16 11/27/16 11/28/16 15:00 23:00 07:00 Intake Total 480 ml 240 ml 180 ml Balance 480 ml 240 ml 180 ml Intake Oral 480 ml 240 ml 180 ml # Voids 2 1 # Bowel Movements 0 Vital Signs Vital Signs Date Time Temp Pulse Resp B/P Pulse Ox O2 Delivery O2 Flow Rate FiO2 11/28/16 08:58 Room Air 11/28/16 08:09 98.2 80 16 140/64 96 11/28/16 04:00 98.7 82 17 157/66 96 11/28/16 00:00 98.0 74 18 142/62 96 11/27/16 20:00 Room Air 11/27/16 20:00 98.4 85 17 125/58 95 11/27/16 20:00 78 11/27/16 16:06 98.1 68 19 110/54 94 (Vickie Dubois) CBC/BMP: 11/25/16 0146 11/27/16 0616 Physical Exam General General Appearance: Well Developed, Well Nourished, No Acute Distress, Comfortable (Vickie Dubois) Eyes Eye Exam: Pupils Equal, Pupils Reactive (Vickie Dubois) Ears & Nose Ears & Nose Exam: Nasal Mucosa [place] (Vickie Dubois. AFFILIATE MARKETING SPECIALIST) Throat Throat Exam: Oral Mucosa [place] & Moist (Vickie Dubois M. AFFILIATE MARKETING SPECIALIST) Neck Neck Exam: Neck Supple, Trachea Midline (Vickie Dubois. AFFILIATE MARKETING SPECIALIST) Pulmonary Resp Exam: Clear Bilaterally (Vickie Dubois M. AFFILIATE MARKETING SPECIALIST) Cardiology CV Exam: Good Perfusion, Irregular, Arrhythmia, Bradycardia CV Remarks Greater than 2 seconds upon cyst 2 last a.m. of 0333 (Vickie Dubois. AFFILIATE MARKETING SPECIALIST) Gastrointestinal/Abdomen GI Exam: Soft, Non-Tender, Bowel Sounds Present, Non-Distended (Vickie Dubois. AFFILIATE MARKETING SPECIALIST) Musculoskeletal MS Exam: Joints Intact (Vickie Dubois. AFFILIATE MARKETING SPECIALIST) Integumentary Skin Exam: Warm, Dry (Vickie Dubois. AFFILIATE MARKETING SPECIALIST) Extremeties Extremities Exam: No Edema, Pedal Pulses Palpable (Vickie Dubois M. AFFILIATE MARKETING SPECIALIST) Neurologic Neuro Exam: Alert, Awake, Oriented, Speech Clear, Moving All Extremities, No Focal Deficits (Vickie Dubois. AFFILIATE MARKETING SPECIALIST) Psychiatric Psych Exam: Appropriate Responses (Vickie Dubois AFFILIATE MARKETING SPECIALIST) Assessment/Plan Problem List: (1) Sick sinus syndrome (2) UTI (urinary tract infection) (3) Hypertension (4) Symptomatic bradycardia (5) H/O mitral valve replacement with tissue graft (6) Weakness (7) Permanent atrial fibrillation (8) History of medication noncompliance (9) Kidney disease Assessment/Plan (1) Sick sinus syndrome (2) UTI (urinary tract infection) (3) Hypertension (4) Symptomatic bradycardia (5) H/O mitral valve replacement with tissue graft (6) Weakness (7) Permanent atrial fibrillation (8) History of medication noncompliance (9) Kidney disease Assessment/Plan cardiology consult Toprol, dig , HCTZ and CCB on hold, grading supervisor evaluated , patient had an episode of 2 different pauses approximately 0333 last night during hours of sleep. She asymptomatic, heart rate 70s 80s afib, Patient will need to be reevaluated per cardiology Wednesday for possible pacemaker versus medical management. cystitis, asymptomatic now, urine culture looks like probable contaminant. We' ll discontinue Rocephin Antibiotic therapy, Rocephin IV Acute kidney injury, renal insufficiency improving. Hypertension stable medical management continue some meds DVT prophylaxis with Xarelto PT working with patients mobility, strength, and ADLs Concern is for patient safety since she now lives alone We'll continue to monitor heart rhythm, ambulate patient to evaluate for any symptoms of dizziness or syncope. Atrial fib, underlying rhythm CM for DC planning, HHC, versus SNF from rehabilitation. Hold any discharge until reevaluated per cardiology. D/W Dr. Browning patient seen on her behalf D/W patient (Vickie Dubois) Assessment/Plan 86yr old female seen and examined today. Above A/P discussed with Vickie. Noted 2 pauses, one 2.6sec: patient was asymptomatic. Will request cardiology consult again to re-evaluate patient ?need for pacemaker. Will monitor and follow. (Kortney Browning MD) Problem Qualifiers (1) UTI (urinary tract infection): Qualified Code: N30.00 - Acute cystitis without hematuria (2) Hypertension: Qualified Code: I10 - Essential hypertension Vickie Dubois Nov 28, 2016 13:13 Kortney Browning MD Nov 28, 2016 15:05
[2016-11-29] VITALS: PULSE 15; TEMP 98.3
[2016-11-29 04:00] VITALS: BP 133/62; PULSE 73; RESP 16; TEMP 98.1; O2SAT 95
[2016-11-29] MEDS: LEVOTHYROXINE SODIUM 50 MCG TAB PO SCH (05:15)
[2016-11-29 08:04] VITALS: BP 140/77; PULSE 110; RESP 18; TEMP 98; O2SAT 95
[2016-11-29] MEDS: DOCUSATE SODIUM 100 MG CAP PO SCH (09:22)
[2016-11-29] MEDS: SODIUM CHLORIDE 0.9% FLUSH 5 ML FLUSH FLUSH SCH (09:22)
[2016-11-29] MEDS: LISINOPRIL 10 MG TAB PO SCH (09:22)
[2016-11-29] MEDS: MULTIVITAMINS/MINERALS THERAPEUTIC TAB PO SCH (09:22)
[2016-11-29] MEDS: CITALOPRAM HYDROBROMIDE 20 MG TAB PO SCH (09:22)
[2016-11-29] MEDS: RIVAROXABAN 15 MG TAB PO SCH (09:22)
--- NOTE | 2016-11-29 10:13 | HHI.PR ---
Subjective Subjective Remarks Resting in bed Alert oriented Appetite good Denies any shortness of breath Denies any dizziness (Vickie Dubois) Review of Systems Constitutional Constitutional: Weakness (generalized but improved) Constitutional Remarks 10 point ROS done. Exam unremarkable except for generalized weakness, related to age (Vickie Dubois) Pulmonary Respiratory: Coughing (occasional) (Vickie Dubois) Cardiology CV Remarks Telemetry shows no pauses, at. fib cvr (Vickie Dubois) GI/Abdomen GI/Abdomen Remarks Bowel movement today (Vickie Dubois) Musculoskeletal MS: Weakness (secondary to age) (Vickie Dubois) Neurologic Neurologic Remarks Denies any dizziness (Vickie Dubois) Psychiatric Psychiatric: Normal Mood (Vickie Dubois) Vitals/Results Intake & Output 11/28/16 11/28/16 11/29/16 15:00 23:00 07:00 Intake Total 600 ml 240 ml Balance 600 ml 240 ml Intake Oral 600 ml 240 ml # Voids 2 2 # Bowel Movements 1 0 Vital Signs Vital Signs Date Time Temp Pulse Resp B/P Pulse Ox O2 Delivery O2 Flow Rate FiO2 11/29/16 04:00 98.1 73 16 133/62 95 11/29/16 00:00 Room Air 11/29/16 00:00 98.3 15 11/28/16 20:06 84 11/28/16 20:00 Room Air 11/28/16 20:00 98.1 62 18 133/61 96 11/28/16 16:00 97.9 71 16 113/59 97 11/28/16 12:04 98.7 80 16 117/80 80 (Vickie Dubois) CBC/BMP: 11/25/16 0146 11/27/16 0616 Physical Exam General General Appearance: Well Developed, Well Nourished, No Acute Distress, Comfortable (Vickie Dubois) Eyes Eye Exam: Pupils Equal, Pupils Reactive (Vickie Dubois) Ears & Nose Ears & Nose Exam: Nasal Mucosa [place] ([place],Vickie M. BLOW DOWN HELPER) Throat Throat Exam: Oral Mucosa [place] & Moist ([place],Susan M. BLOW DOWN HELPER) Neck Neck Exam: Neck Supple, Trachea Midline ([place],Susan M. BLOW DOWN HELPER) Pulmonary Resp Exam: Clear Bilaterally ([place],Susan M. BLOW DOWN HELPER) Cardiology CV Exam: Good Perfusion, Irregular, Arrhythmia, Bradycardia CV Remarks No further pauses in the past 24 hours. Slept well asymptomatic ([place],Susan M. BLOW DOWN HELPER) Gastrointestinal/Abdomen GI Exam: Soft, Non-Tender, Bowel Sounds Present, Non-Distended ([place],Susan M. BLOW DOWN HELPER) Musculoskeletal MS Exam: Joints Intact ([place],Susan M. BLOW DOWN HELPER) Integumentary Skin Exam: Warm, Dry (SherlyVickie M. BLOW DOWN HELPER) Extremeties Extremities Exam: No Edema, Pedal Pulses Palpable ([place],Susan M. BLOW DOWN HELPER) Neurologic Neuro Exam: Alert, Awake, Oriented, Speech Clear, Moving All Extremities, No Focal Deficits (Vickie Dubois M. BLOW DOWN HELPER) Psychiatric Psych Exam: Appropriate Responses (Vickie Dubois. BLOW DOWN HELPER) Assessment/Plan Problem List: (1) Sick sinus syndrome (2) UTI (urinary tract infection) (3) Hypertension (4) Symptomatic bradycardia (5) H/O mitral valve replacement with tissue graft (6) Weakness (7) Permanent atrial fibrillation (8) History of medication noncompliance (9) Kidney disease Assessment/Plan Assessment/Plan cardiology consult Toprol, dig , HCTZ and CCB on hold, freight loader evaluated , patient had no further pauses over the past 24 hours , verified on telemetry She asymptomatic, heart rate 70s 80s afib, Discharge planning with cardiology outpatient versus reconsult inpatient, cystitis, asymptomatic now, urine culture looks like probable contaminant. We' ll discontinue Rocephin Antibiotic therapy, Rocephin IV Acute kidney injury, renal insufficiency improving. Hypertension stable medical management continue some meds DVT prophylaxis with Xarelto PT working with patients mobility, strength, and ADLs Concern is for patient safety since she now lives alone We'll continue to monitor heart rhythm, ambulate patient to evaluate for any symptoms of dizziness or syncope. Atrial fib, underlying rhythm CM for DC planning, HHC, versus SNF from rehabilitation. D/W Dr. Browning patient seen on her behalf D/W patient (Vickie Dubois) Assessment/Plan 86yr old female seen and examined today. No further pauses. No CP/SOB/NVD/palpitations. Patient/daughter requesting to be dced to [facility]. Request case management consult for dc planning. (Kortney Browning MD) Problem Qualifiers (1) UTI (urinary tract infection): Qualified Code: N30.00 - Acute cystitis without hematuria (2) Hypertension: Qualified Code: I10 - Essential hypertension Vickie Dubois Nov 29, 2016 10:13 Kortney Browning MD Nov 29, 2016 13:48
[2016-11-29 11:30] VITALS: PULSE 105
[2016-11-29 12:04] VITALS: BP 131/70; PULSE 92; RESP 18; TEMP 99.5; O2SAT 96
[2016-11-29] MEDS ORDERED: LISI10TA3 PO (13:53)
[2016-11-29 16:04] VITALS: BP 138/77; PULSE 95; RESP 18; TEMP 97.6; O2SAT 96
--- NOTE | 2016-12-06 14:43 | HHI.DS ---
Discharge Summary Admission Date Nov 24, 2016 at 15:33 Discharge Date: Nov 29, 2016 Admitting Diagnosis symptomatically bradycardia, kidney injury (1) Sick sinus syndrome (2) Weakness (3) UTI (urinary tract infection) (4) Hypertension (5) Permanent atrial fibrillation (6) Symptomatic bradycardia (7) History of medication noncompliance (8) Kidney disease (9) H/O mitral valve replacement with tissue graft Brief History Imaging Last Impressions Chest X-Ray 11/24/16 1224 Signed Impressions: Service Date/Time: Thursday, November 24, 2016 13:42 - CONCLUSION: No acute disease. Zenon Saldana MD Renal Ultrasound 11/24/16 0000 Signed Impressions: Service Date/Time: Thursday, November 24, 2016 17:38 - CONCLUSION: 1. Small echogenic kidneys typical of chronic parenchymal disease. 2. No obstructive uropathy or other acute abnormality demonstrated. 3. Small, benign appearing cyst of the right lower pole. 4. Gallstone incidentally noted. Piyush Dan MD Hospital Course This is an 86-year-old female was brought in by family for generalized weakness and lethargy. She has atrial fibrillation and has had problems with controlling her rapid response. She sees supervisor final Dr. Chaparro. Recently she has been put on 200 mg of Toprol, 180 mg of Cardizem in addition to oral digoxin. He was found dig toxic with heart rate in the 40s and 50s, she continued in atrial fibrillation. The patient was complaining of general weakness however she denied any pain, not tolerating, no fever chills or diaphoresis. Also she appeared to have some form of renal dysfunction. Family was unaware that she has problems with her kidney function. She does urinate adequately. Pt. was admitted for further evaluation and treatment for the following diagnosis: Symptomatic bradycardia Digoxin toxicity Possible urinary infection Renal dysfunction, acute kidney injury versus chronic kidney disease Hematuria During the course of the hospitalization, the following took place Pt. admitted, Dig stopped Put on IVF and antibiotics for poss UTI She was continued on anticoagulation Cardiology consulted. Telemetry monitoring ordered. Pt. was noted to have pauses overnight, her CCB and BB were stopped Cardiology continued to monitor, final recommendations were to leave off Digoxin, HCTZ, Toprol XL and Cardizem unless HR or BP required them. Increase activity as tolerates and watch HR. Recommended OP follow up in 2-3 weeks. UC remained neg. prob. contaminant, Rocephin DC renal function improved after IVF PT was ordered. CM consult for dc planning, SNF recommended. Pt and family agreeable Pt discharged to SNF in stable condition Pt Condition on Discharge: Fair Discharge Disposition: Discharge to SNF Discharge Instructions DIET: Follow Instructions for: Heart Healthy Diet Activities you can perform: See Additionl Instruction Other Activity Instructions: as tolerated. Fall precautions. Follow up Referrals: Appointment for Follow Up PCP Follow-up SNF/SENIOR CARE/ with [facility] New Medications: Lisinopril (Lisinopril) 10 Mg Tab 10 MG PO DAILY htn Days 30 Ref 0 TAB Continued Medications: Citalopram (Celexa) 20 Mg Tab 20 MG PO DAILY Control Depression #30 Ref 0 TAB Levothyroxine (Levothyroxine) 50 Mcg Tab 50 MCG PO DAILY Thyroid #30 Ref 0 TAB Multi-Vit/Iron-Vitamin C-E70-Unbhu Acid-Lacto (Fusion Plus) 130-75-0.12-1,250- 30 mg Cap 1 CAP PO DAILY CAP Rivaroxaban (Xarelto) 15 Mg Tab 15 MG PO DAILY Blood Clot Prevention Ref 0 TAB Discontinued Medications: Digoxin (Lanoxin) 0.125 Mg Tab 0.125 MG PO DAILY Regulate Heart Beat #30 Ref 0 TAB Diltiazem ER 24 HR (Cartia Xt) 120 Mg Caper 120 MG PO DAILY #30 Ref 0 CAP Hydrochlorothiazide (Hydrochlorothiazide) 12.5 Mg Tab 12.5 MG PO DAILY #30 Ref 0 TAB Metoprolol Succinate ER 24 HR (Metoprolol Succinate ER 24 HR) 200 Mg Tab 200 MG PO DAILY #30 Ref 0 TAB Quinapril (Quinapril) 20 Mg Tab 20 MG PO DAILY Blood Pressure Management #30 Ref 0 TAB Catarina Morgan Dec 06, 2016 14:43
== END 2016-11-29 17:59 | DRG 309 ==
LOC: NEPA 11:14 → NEDA 15:33 → N04B 18:08 → N04A 11-28 14:40
PROVIDERS: ADMIT Specialist; ATTEND Specialist
DX: I49.5 Sick sinus syndrome (principal); N17.9 Acute kidney failure, unspecified; E86.0 Dehydration; N30.00 Acute cystitis without hematuria; I11.9 Hypertensive heart disease without heart failure; I35.1 Nonrheumatic aortic (valve) insufficiency; I48.2 Chronic atrial fibrillation; E03.9 Hypothyroidism, unspecified; E78.5 Hyperlipidemia, unspecified; R53.1 Weakness; R53.83 Other fatigue; T46.0X5A Adverse effect of cardiac-stimulant glycosides and drugs of similar action, initial encounter; Z95.3 Presence of xenogenic heart valve; Z91.14 Patient's other noncompliance with medication regimen; Z79.01 Long term (current) use of anticoagulants
CPT/HCPCS: 71010; 76775; 80048; 80053; 80162; 81001; 82550; 83735; 84132; 84484; 85025; 85610; 85730; 87086; 93005; J0696

== ENCOUNTER 2017-01-06 11:56 | Emergency (ER) | payer MEDICARE ==
[~2017-01-06] VITALS: Ht 162.6 cm; Wt 75.0 kg
[~2017-01-06 11:56] MED LIST changes: -CARD120C4 PO; +CELE20TA PO; +FE FCAP3 PO; -HYDR-2952 PO; -LEVO.05 PO; +LEVO50TA4 PO; +LISI10TA3 PO; -METO100T PO; -QUIN20TA22 PO; -TAB-TAB PO; +XARE15TA PO; -[UNRECOGNIZED DRUG - OTHER] PO
[2017-01-06 11:59] VITALS: BP 129/89; PULSE 115; RESP 20; TEMP 97.3; O2SAT 96
--- NOTE | 2017-01-06 12:24 | PD ---
Physical Exam Date Seen by Provider: Jan 06, 2017 Time Seen by Provider: 12:20 Narrative Pt is an 86 year old female presenting to the ED with c/o weakness, decreased appetite, depressed. Making statements of harming herself. Pt has recently been moved to an assisted living facility and is not adapting to it per her son's report. Pt has history of dementia, STML. Pt does not have a plan for suicide, but she states she thinks of it. Pt denies any pain, and has no other physical complaints. PCP is Margarita as well as Dr. Martines. Pt currently resides at [facility]. VSS, son with pt. Pt awaiting bed placement. Data Data Last Documented VS Vital Signs Date Time Temp Pulse Resp B/P Pulse Ox O2 Delivery O2 Flow Rate FiO2 01/06/17 11:59 97.3 115 20 129/89 96 Room Air [facility] Supervised Visit with CAESAR: Jael Atkinson Jan 06, 2017 12:24
== END 2017-01-06 13:52 | disposition left against medical advice (07) ==
LOC: NED 11:56
DX: R53.1 Weakness (principal)
CPT/HCPCS: 99281

== ENCOUNTER 2017-06-02 16:05 | Emergency (ER) | payer MEDICARE ==
[~2017-06-02] VITALS: Ht 160 cm; Wt 65.0 kg
[2017-06-02 16:07] VITALS: BP 133/86; PULSE 96; RESP 20; TEMP 98.3; O2SAT 91
[2017-06-02 18:15] VITALS: BP 190/88; PULSE 101; RESP 14; TEMP 97.3; O2SAT 93
[2017-06-02] MEDS ORDERED: CLON0.1D T-DERMAL (18:18)
--- NOTE | 2017-06-02 19:10 | RADRPT ---
EXAM DATE/TIME: 06/02/2017 19:09 [facility] COMPARISON: CHEST SINGLE AP, November 24, 2016, 13:42. INDICATIONS : Rib pain post fall. MEDICAL HISTORY : Congestive heart failure. Hypertension Hypercholesterolemia. AFIB SURGICAL HISTORY : Valve replacement. ENCOUNTER: Initial ACUITY: 2 days PAIN SCORE: 3/10 LOCATION: Left upper chest FINDINGS: There is mild left base consolidation with a possible small pleural effusion. Right lung appears reas onably clear. I don't see a pneumothorax on either side. Heart size stable, upper limits of normal. Patient has had previous median sternotomy and valve repla cement. Visualized osseous structures grossly intact. CONCLUSION: Left base consolidation. No perceptible rib fracture. No pneumothorax. Piyush Dan MD on June 02, 2017 at 19:07 Board Certified Radiologist. This report was verified electronically.
[2017-06-02 19:22] VITALS: BP 192/91; PULSE 96; RESP 18; O2SAT 94
[2017-06-02] MEDS ORDERED: oxyCODONE/ACETAMINOPHEN 5 MG/325 MG TAB PO ONE (19:30)
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
[2017-06-02] MEDS ORDERED: TYLETAB34 PO (20:13)
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
== END 2017-06-02 20:39 | disposition home or self-care (01) ==
LOC: NEPE 16:05
DX: R07.81 Pleurodynia (principal); I11.0 Hypertensive heart disease with heart failure; I50.9 Heart failure, unspecified; W06.XXXA Fall from bed, initial encounter
CPT/HCPCS: 70450; 71020; 94150; 99284